=== PATIENT | male | born 1960 | race Two or more races ===

== ENCOUNTER 2019-04-18 02:20 | Inpatient (IN) | payer MEDICARE, OTHER ==
[~2019-04-18] VITALS: Ht 167.6 cm; Wt 85.7 kg
[2019-04-18] VITALS (7 sets, daily range): BP systolic 139–216; BP diastolic 74–95
[2019-04-18] MEDS ORDERED: LABETALOL HCL200 MG ORAL (02:34)
[2019-04-18] MEDS ORDERED: JANUVIA25 MG ORAL (02:34)
[2019-04-18] MEDS ORDERED: Omnipaue 350mg/ml 100ml vial INJ PRN ×3 (02:45→03:30)
[2019-04-18] MEDS ORDERED: Labetalol 5mg/ml 20ml vial IV ONE (02:45)
--- NOTE | 2019-04-18 02:47 | NUR ---
ER Nurse Note: Pt arrived in wheelchair with c/o RT side chest pain 09/23 since 04/17. Pt stated Hx of RT sided stroke with LT side deficts. Pt calm, no signs of distress, 2L NC at 96%. SLIV RT AC established; patent. Blood work sent to lab. Pending urine and CT. Will continue to montior.
--- NOTE | 2019-04-18 02:49 | Emergency Room Report ---
History of Present Illness General Chief Complaint: Chest Pain Source: Patient Present Illness HPI 58-year-old male history of stroke, hypertension, hyperlipidemia, diabetes presents with chest pain that started at 2300 no aggravating relieving factors symptoms have been intermittent, lasting minutes, he feels a dull ache that moves the back, severity is moderate, intermittent, patient denies any nausea vomiting he does endorse some shortness of breath, patient presents for evaluation. Allergies: Coded Allergies: No Known Allergies (Unverified , 04/18/19) Patient History Past Medical History: see triage record Reviewed Nursing Documentation: PMH: Agreed; PSxH: Agreed Nursing Documentation-PMH Past Medical History: No History, Except For Hx Hypertension: Yes Hx Diabetes: Yes Review of Systems All Other Systems: negative except mentioned in HPI Physical Exam Vital Signs Date Time Temp Pulse Resp B/P (MAP) Pulse Ox O2 Delivery O2 Flow Rate FiO2 04/18/19 02:30 98.2 98 25 215/96 (135) 89 Room Air Sp02 EP Interpretation: reviewed, abnormal - Reduced 89% requiring nasal cannula General Appearance: well appearing, no apparent distress, alert Head: normocephalic, atraumatic Eyes: bilateral eye PERRL, bilateral eye EOMI ENT: uvula midline, moist mucus membranes Neck: supple, thyroid normal, supple/symm/no masses Respiratory: no respiratory distress, no retraction, no accessory muscle use, decreased breath sounds Cardiovascular #1: normal peripheral pulses, regular rate, rhythm, no edema, no gallop, no murmur Gastrointestinal: non tender, soft, no guarding, no rebound Musculoskeletal: normal inspection Neurologic: alert, oriented x3 Psychiatric: mood/affect normal Skin: no rash, warm/dry Medical Decision Making Diagnostic Impression: Primary Impression: Chest pain Qualified Codes: R07.9 - Chest pain, unspecified Additional Impression: Pulmonary edema Qualified Codes: J81.0 - Acute pulmonary edema ER Course 58-year-old male presents with chest pain that radiates to his back, concern for possible dissection, versus ACS versus PE, patient found to have some pulmonary edema on chest x-ray, Labetalol given for his elevated blood pressure in the 200s, aspirin given Patient receives dialysis Monday and Patient admitted to Dr. Jensen with Dr. Mina covering at 4:22AM Laboratory Tests Test 04/18/19 02:40 White Blood Count 11.6 K/UL (4.8-10.8) H Red Blood Count 3.88 M/UL (4.70-6.10) L Hemoglobin 12.3 G/DL (14.2-18.0) L Hematocrit 37.2 % (42.0-52.0) L Mean Corpuscular Volume 96 FL (80-99) Mean Corpuscular Hemoglobin 31.6 PG (27.0-31.0) H Mean Corpuscular Hemoglobin Concent 33.0 G/DL (32.0-36.0) Red Cell Distribution Width 14.9 % (11.6-14.8) H Platelet Count 174 K/UL (150-450) Mean Platelet Volume 5.8 FL (6.5-10.1) L Neutrophils (%) (Auto) % (45.0-75.0) Lymphocytes (%) (Auto) % (20.0-45.0) Monocytes (%) (Auto) % (1.0-10.0) Eosinophils (%) (Auto) % (0.0-3.0) Basophils (%) (Auto) % (0.0-2.0) Prothrombin Time 10.4 SEC (9.30-11.50) Prothrombin Time INR 1.0 (0.9-1.1) PTT 29 SEC (23-33) Sodium Level 141 MMOL/L (136-145) Potassium Level 5.4 MMOL/L (3.5-5.1) H Chloride Level 105 MMOL/L (98-107) Carbon Dioxide Level 22 MMOL/L (21-32) Anion Gap 14 mmol/L (5-15) Blood Urea Nitrogen 85 mg/dL (7-18) H Creatinine 13.0 MG/DL (0.55-1.30) H Estimate Glomerular Filtration Rate 4.0 mL/min (>60) Glucose Level 125 MG/DL (74-106) H Calcium Level 8.5 MG/DL (8.5-10.1) Total Bilirubin 0.7 MG/DL (0.2-1.0) Aspartate Amino Transferase (AST) 10 U/L (15-37) L Alanine Aminotransferase (ALT) 15 U/L (12-78) Alkaline Phosphatase 71 U/L (46-116) Troponin I 0.020 ng/mL (0.000-0.056) Pro-B-Type Natriuretic Peptide 60131 pg/mL (0-125) H Total Protein 7.4 G/DL (6.4-8.2) Albumin 3.7 G/DL (3.4-5.0) Globulin 3.7 g/dL Albumin/Globulin Ratio 1.0 (1.0-2.7) Lipase 185 U/L (73-393) EKG Diagnostic Results EKG Time: 02:42 EP Interpretation: NSR, rate 86, QTc 461, no acute ST elevations, flipped T waves 1 V5 V6 Rhythm Strip Diag. Results Rhythm Strip Time: 02:48 EP Interpretation: yes Rate: 84 Rhythm: NSR, no PVC's, no ectopy Chest X-Ray Diagnostic Results Chest X-Ray Diagnostic Results : Chest X-Ray Ordered: Yes # of Views/Limited/Complete: 1 View Indication: Chest Pain EP Interpretation: Yes Interpretation: other - Bilateral pulmonary edema Impression: Other - Bilateral pulmonary edema Electronically Signed by: Shlomo Cervantes MD CT/MRI/US Diagnostic Results CT/MRI/US Diagnostic Results : Impression Preliminary Findings Only See Final Report For Complete Findings CTA CHEST With Contrast: Exam limited by technical artifact. Moderate sized bilateral pleural effusions with atelectasis in both lower lobes. Diffuse interstitial edema, which may be secondary to cardiac dysfunction or hypervolemia. No pneumothorax. Heart size top normal. No pericardial effusion. Major mediastinal vessels are normal in caliber. No thoracic aortic dissection. Radiologist: Alessio Schmid M.D. Study ready at 04:45 and initial results transmitted at 05:54 Last Vital Signs Date Time Temp Pulse Resp B/P (MAP) Pulse Ox O2 Delivery O2 Flow Rate FiO2 04/18/19 02:42 96 216/84 04/18/19 02:30 98.2 25 89 Room Air Disposition: ADMITTED INPATIENT Condition: Stable Referrals: [facility],REFERR[facility] (PCP) Shlomo Cervantes MD Apr 18, 2019 02:49
[2019-04-18 02:53] LABS: HEMATOCRIT 37.2 % (42.0-52.0); HEMOGLOBIN 12.3 G/DL (14.2-18.0); MEAN CORPUSCULAR VOLUME 96 FL (80-99); PLATELET COUNT 174 K/UL (150-450); RED BLOOD COUNT 3.88 M/UL (4.70-6.10); RED CELL DISTRIBUTION WIDTH 14.9 % (11.6-14.8); WHITE BLOOD COUNT 11.6 K/UL (4.8-10.8)
[2019-04-18 03:03] LABS: ANION GAP 14 mmol/L (5-15); BLOOD UREA NITROGEN 85 mg/dL (7-18); CALCIUM 8.5 MG/DL (8.5-10.1); CARBON DIOXIDE 22 MMOL/L (21-32); CHLORIDE 105 MMOL/L (98-107); POTASSIUM 5.4 MMOL/L (3.5-5.1); SODIUM 141 MMOL/L (136-145)
[2019-04-18 03:14] LABS: ALANINE AMINOTRANSFERASE 15 U/L (12-78); ALBUMIN 3.7 G/DL (3.4-5.0); ALKALINE PHOSPHATASE 71 U/L (46-116); ASPARTATE AMINO TRANSFERASE 10 U/L (15-37); BILIRUBIN,TOTAL 0.7 MG/DL (0.2-1.0)
--- NOTE | 2019-04-18 04:20 | NUR ---
ER Nurse Note: CT taken, awaiting results. Pt continues to be stable. Pt denies pain. Urine pending. All safety measures met; will continue to montior.
--- NOTE | 2019-04-18 04:35 | NUR ---
ER Nurse Note: Report given to JANELLE Hagan in tele for continutiy of care. Pt stable, no signs of distress. All belongings taken.
--- NOTE | 2019-04-18 04:45 | NUR ---
NURSE NOTES: Received pt from ED via gurney. Pt transferred to [facility] without any incident. Family member at bedside. Pt is A/O x4. [place] pt to room and unit. monitoring engineer is in placed, IV site is intact, asymptomatic and patent. Received report from JANELLE Snyder. Bed is in the lowest position and locked. Belongings list checked and accounted for. No signs/symptoms of chest pain or acute distress noted at this time. Will contact Dr. Mina for admission orders covering doctor for Dr. Jensen).
--- NOTE | 2019-04-18 05:16 | NUR ---
NURSE NOTES: Contacted Dr. Mina for admission orders. Awaiting call back.
--- NOTE | 2019-04-18 05:37 | Diagnostic Imaging Report ---
Indication: Chest and abdominal pain 1394 Technique: Continuous helical transaxial imaging of the chest, abdomen and pelvis was obtained from the thoracic inlet to the pubic symphysis during rapid intravenous contrast administration. Arterial phase of enhancement obtained. Coronal 2-D reformats were also obtained and maximum intensity projection images in multiple planes. Study obtained in a Siemens sensation [address] Total Dose length Product (DLP): [address] Dose Index Volume (CTDIvol): 18.7 mGy Comparison: None Findings: Study is nondiagnostic with regard to the thoracic and abdominal aorta which are not opacified adequately. There is extensive technical artifact limiting evaluation. Bilateral pleural effusions are noted. IMPRESSION: Nondiagnostic exam [facility] has communicated the preliminary results to the Emergency Department. Their findings are largely concordant with this report. The CT scanner at [facility] is accredited by the [employer] and the scans are performed using dose optimization techniques as appropriate to a performed exam including Automatic Exposure control.
--- NOTE | 2019-04-18 05:50 | NUR ---
NURSE NOTES: Received admission orders from Dr. Mina. Will note and carry out.
--- NOTE | 2019-04-18 05:55 | Diagnostic Imaging Report ---
Indication: Chest pain Technique: Continuous helical transaxial imaging of the chest was obtained from the thoracic inlet to the upper abdomen during rapid intravenous contrast administration. Arterial phase of enhancement obtained. Coronal 2-D reformats were also obtained and maximum intensity projection images in multiple planes. Study obtained in a Siemens sensation [address] Automatic Exposure Control was utilized. Total Dose length Product (DLP): 1154.[address] Dose Index Volume (CTDIvol): 21.8 mGy Comparison: None Findings: Study is relatively nondiagnostic due to technical artifact. There are bilateral pleural effusions. There is a suggestion of posterior atelectasis. There is contrast present within the pulmonary artery and aorta. Can confidently say there is no aneurysm of the abdominal aorta. Cannot confidently exclude other disease such as a subtle dissection. The main pulmonary artery is opacified. Cannot exclude pulmonary embolus to any with any confidence. IMPRESSION: Nondiagnostic examination with regard to evaluation for pulmonary embolus or aortic dissection. No evidence of aortic aneurysm. Moderate bilateral pleural effusions. [facility] has communicated the preliminary results to the Emergency Department. Their findings are largely concordant with this report. The CT scanner at [facility] is accredited by the [employer] and the scans are performed using dose optimization techniques as appropriate to a performed exam including Automatic Exposure control.
[2019-04-18] MEDS ORDERED: Miralax 17gm pkt ORAL PRN (06:15)
[2019-04-18] MEDS ORDERED: Nitroglycerin Subl 0.4mg tab SL PRN (06:45)
--- NOTE | 2019-04-18 07:00 | NUR ---
NURSE NOTES: Received report from JANELLE Dyson. The patient is resting on the bed without acute distress or shortness of breath. The patient's bed in the lowest position, call light in reach, and fall and aspiration precaution reinforced. IV site intact and patent. Per Karis, she will do swab since the patient is on dialysis. Per JANELLE Dyson, Dr. Mina will put the dialysis order. The patient is on 1L NC as ordered. Will continue plan of care.
--- NOTE | 2019-04-18 07:30 | NUR ---
NURSE NOTES: Isolation swabs completed and sent to lab.
--- NOTE | 2019-04-18 08:10 | NUR ---
HAND-OFF: Report given to JANELLE Garvey.
[2019-04-18] MEDS: Labetalol 200mg tab ORAL SCH ×2 (08:52→20:10)
[2019-04-18] MEDS: Aspirin Baby 81mg ORAL SCH (08:52)
[2019-04-18] MEDS: NovoLOG Insulin Flexpen SUBQ SCH ×4 (08:52→21:13)
[2019-04-18] MEDS: Heparin 5000 units/ml inj SUBQ SCH ×2 (08:53→21:14)
--- NOTE | 2019-04-18 10:30 | NUR ---
NURSE NOTES: Spoke with Dr. Mina regarding dialysis order today. Per Dr. Mina, he will put the order as soon as he gets available. Will continue plan of care.
--- NOTE | 2019-04-18 10:42 | Diagnostic Imaging Report ---
Indication: Dyspnea Comparison: None A single view chest radiograph was obtained. Findings: There is enlargement of the cardiac silhouette with pulmonary vascular redistribution and prominence, hazy vessel margins and the suggestion of interstitial edema consistent with CHF. Both costophrenic angles are slightly blunted. The bones are unremarkable. IMPRESSION: Suspected mild CHF
--- NOTE | 2019-04-18 11:04 | NUR ---
*-* NO INSURANCE INFORMATION IN THE BAR UNABLE TO SEND CLINICALS OR REVIEWS *-*
[2019-04-18] MEDS ORDERED: Lexiscan 0.4mg/5ml syringe IV PRN (12:38)
--- NOTE | 2019-04-18 15:00 | NUR ---
NURSE NOTES: Dr. Jensen at the bedside assessed the patient. Dr. Jensen was notified regarding abnormal labs including potassium, BUN, and creatinine. Will continue plan of care.
--- NOTE | 2019-04-18 15:28 | NUR ---
CASE MANAGEMENT:REVIEW 58 YR OLD MALE FROM HOME TO ER CC: CHEST PAIN SI:CHEST PAIN. PULMONARY EDEMA 98.2 98 25 215/96 89% ON RA WBC+11.6 BUN+85 CR+13.0 TROPONIN(-) IS: IV LABETALOL ASA PO CXR CTA CHEST/ABD/PELVIS : TO TELEMETRY PLAN: STRESS TEST
[2019-04-18] MEDS: Lisinopril 20mg tab ORAL SCH (15:45)
--- NOTE | 2019-04-18 15:45 | NUR ---
NURSE NOTES: Dialysis nurse, Pablo, came in for the patient's dialysis today with Dr. Mina's verbal order. Lisinopril on hold prior to the dialysis after having discussion with Pablo, the nurse. Will continue plan of care.
--- NOTE | 2019-04-18 16:45 | Consultation ---
DATE OF CONSULTATION: 04/18/2019 CARDIOLOGY CONSULTATION CONSULTING PHYSICIAN: Stefano Reece M.D. REASON FOR CONSULTATION: Chest pain and congestive heart failure with hypertensive urgency. HISTORY OF PRESENT ILLNESS: This is a 58-year-old male with left-sided hemiparesis following a stroke that has rendered him nonambulatory. He lives with his . He apparently complained of some discomfort in his chest last evening, described now as mild and now resolved. He notes no prior history of chest discomfort of this type, but is not a very reliable historian. The patient also noted some shortness of breath and was seen in the emergency room with significantly elevated blood pressure. PAST MEDICAL HISTORY: Includes 1. Hypertension. 2. Hyperlipidemia. 3. End-stage renal disease, on hemodialysis Monday, , Monday. 4. Type 2 diabetes mellitus. 5. Cerebrovascular accident with left hemiparesis. ALLERGIES: None. MEDICATIONS: Reviewed and reconciled. FAMILY HISTORY: Noncontributory. SOCIAL HISTORY: Negative for smoking, alcohol, or substance abuse. REVIEW OF SYSTEMS: A 10-point review of systems was performed. Limited data available from the patient and his at bedside, but pertinent findings were noted above. PHYSICAL EXAMINATION: VITAL SIGNS: In the emergency room, blood pressure was 215/96, heart rate 98, and respiratory rate 25. Presently blood pressure 163/82, heart rate 83, and respiratory rate 20. Afebrile. Oxygen saturation 95% on 1 liter. GENERAL: Moderately obese. Left hemiparesis. NECK: Supple. Unable to assess jugular venous pressure. LUNGS: Few rales. CARDIAC: Regular rhythm and rate. Normal S1, S2 with a fourth heart sound. EXTREMITIES: With trace edema. LABORATORY DATA: Notable for white count of 11.6, hemoglobin 12.3. BUN is 85, creatinine 13, sodium 141, potassium 5.4, bicarbonate 22. Troponin 0.02, repeated 0.012. Pro-natriuretic peptide is 21,700. EKG reveals sinus rhythm at 86 beats per minute, prolonged QTc, lateral T-wave changes. IMPRESSION: 1. Hypertensive urgency. 2. Acute on chronic diastolic congestive heart failure. 3. Acute coronary syndrome, likely precipitated by above. 4. End-stage renal disease, on hemodialysis. PLAN: 1. Cardiac monitoring. 2. Serial troponins. 3. Stepwise titration of antihypertensives. 4. Continue anti-platelet therapy. 5. Check lipid panel. 6. Hemodialysis with ultrafiltration. 7. Consideration subsequently for myocardial perfusion scan for assessment of coronary flow reserve. Stefano Reece M.D. DR: YESSENIA JOB#: [id number] CC:
--- NOTE | 2019-04-18 17:00 | NUR ---
NURSE NOTES: The patient is scheduled for HD on 04/19/2019. Pablo, hemodialysis nurse, confirmed the HD schedule and order for tomorrow. Will continue plan of care.
--- NOTE | 2019-04-18 18:00 | NUR ---
NURSE NOTES: Wu Shah, hemodialysis nurse, 3L out total from hemodialysis. The patient is stable without acute distress or shortness of breath. Will continue plan of care.
--- NOTE | 2019-04-18 18:45 | History and Physical Report ---
DATE OF ADMISSION: 04/18/2019 ALLERGIES: None. MEDICATIONS: Reviewed. CHIEF COMPLAINT: Short of breath. HISTORY OF PRESENT ILLNESS: This 58-year-old man came to the emergency department because of shortness of breath for 1 day. He apparently did go to dialysis, but the details are not known regarding how much fluid was removed. He came to the emergency department and found to have pleural effusions and congestive heart failure. He has some nonspecific chest pain, but troponins are negative. PAST MEDICAL HISTORY: Includes renal failure on dialysis, diabetes, hyperlipidemia, hypertension, stroke with left hemiparesis. REVIEW OF SYSTEMS: Otherwise unremarkable. PHYSICAL EXAMINATION: GENERAL: The patient is alert and responsive and Serbian. VITAL SIGNS: Stable. Earlier, the oxygen saturation was 89% on room air, but it is satisfactory now on 2 liters. He is overweight. HEENT: The head is normocephalic. NECK: No jugular venous distention. CHEST: Few rales on the left side. CARDIAC: Rhythm is regular. ABDOMEN: Soft and nontender. There is no accessory muscle use. EXTREMITIES: No clubbing, cyanosis, or edema. DIAGNOSTIC DATA: Chest x-ray and CT scan of the chest were reviewed and there were bilateral effusions. Echocardiogram shows satisfactory ejection fraction with left ventricular hypertrophy and pulmonary hypertension. LABORATORY STUDIES: Show azotemia and mild hyperkalemia as well as mild anemia, improved. IMPRESSION: 1. Congestive heart failure with bilateral effusions. 2. Pulmonary hypertension. 3. Left ventricular hypertrophy with hypertensive heart disease. 4. Hypertension. 5. Hyperlipidemia. 6. Diabetes. 7. End-stage renal disease, on dialysis. 8. Anemia of renal disease. 9. History of stroke with left hemiparesis. PLAN: The patient is seen by Cardiology and will be seen by Nephrology. He will be dialyzed to remove fluid. I do not believe thoracentesis is indicated at this time. Cardiac consultation recommendations are pending. Blood pressure medications will be adjusted for better control of his hypertension. Gregorio Jensen M.D. DR: SHELTON JOB#: [id number] CC: Gregorio Jensen M.D.; Fax#: [phone] Stefano Reece M.D. LOVELY BROWN M.D.; FAX#: [phone] [facility]
--- NOTE | 2019-04-18 19:20 | NUR ---
HAND-OFF: Report given to Josef RN. The patient is resting on the bed without acute distress or shortness of breath. The patient's bed in the lowest position, call light in reach, and fall and aspiration precaution reinforced. The patient is scheduled for [place] scan 04/19 and the patient education provided. IV site intact and patent. HD schedule for 04/19 confirmed today. Endorsed plan of care.
--- NOTE | 2019-04-18 19:54 | NUR ---
NURSE NOTES: Received patient from JANELLE Garvey. Patient alert, talkative, and resting in bed comfortably. No signs of distress or pain noted. Patient on 1L NC, no signs of shortness of breath. IV site checked, intact and patent, no signs of erythema, bleeding, or infiltration. Patient able to make needs known. Patient is scheduled for inpatient hemodialysis on 04/19, appointment confirmed on day shift with Pablo. Patient scheduled for stress test on 04/19, consent signed, and patient aware of NPO and no caffeine/coffee/tea/chocolate at midnight. Will continue with plan of care. Addendum: 04/18/19 at 2002 by Fanny Ching RN Bed in lowest position, brakes on, and call light within reach.
--- NOTE | 2019-04-18 21:00 | Consultation ---
DATE OF CONSULTATION: 04/18/2019 NEPHROLOGY CONSULTATION CONSULTING PHYSICIAN: Sai Mina M.D. REASON FOR CONSULTATION: End-stage renal disease, CHF. HISTORY OF PRESENT ILLNESS: The patient is a 58-year-old male, who has been on dialysis for about 3 years, has a left arm fistula, apparently dialyzes 2 days a week. He has history of CVA with left-sided weakness, hypertension, diabetes. He presented with shortness of breath and CHF. He also had some vague chest discomfort in the precordial area, not clear if this is from shortness of breath or angina. There is no prior history of GA. ALLERGIES: None known. MEDICATIONS: Normodyne and Januvia. SURGERIES: Left arm AV fistula. SYSTEM REVIEW: HEAD, EYES, EARS, NOSE, AND THROAT: He states his vision and hearing is good. ENDOCRINE: History of diabetes, mild obesity. PULMONARY: Shortness of breath currently. No chronic shortness of breath. CARDIAC: No prior history of GA. Denies palpitations. GASTROINTESTINAL: Denies nausea, vomiting, abdominal pain. GENITOURINARY: Denies dysuria, hematuria. NEUROLOGIC: CVA with left-sided weakness, old. PHYSICAL EXAMINATION: GENERAL: The patient is an alert man, in no acute distress. VITAL SIGNS: BMI 30.5. Temperature is 97.9, pulse 78, respirations 20, and blood pressure 139/74. HEAD, EYES, EARS, NOSE, AND THROAT: Sclerae are nonicteric. Ocular motions intact in all directions. Oral mucosa is moist. There is some ptosis of his right eyelid. NECK: No adenopathy. LUNGS: Clear. Some diminished breath sounds at the bases. HEART: Rhythm is regular. There is apical S4. No murmur. ABDOMEN: Soft without organomegaly or masses. EXTREMITIES: No edema, cyanosis, or clubbing. NEUROLOGIC: He is alert and oriented. Cranial nerves are intact. There is a residual left-sided weakness about 3+ to 4-/5. LABORATORY DATA: Pertinent labs show sodium 141, potassium 5.4, BUN 85, creatinine 13, glucose 125. Troponin 0.020. BNP 80378. IMPRESSION: 1. End-stage renal disease. 2. Congestive heart failure, acute on chronic, likely with diastolic dysfunction. 3. Adult onset diabetes. 4. History of CVA. 5. Obesity. 6. Hypertension. 7. Chest pressure, possible acute coronary syndrome versus due to CHF. PLAN: The patient will be put on anti-ischemic regimen. He is seen on dialysis on 04/18/2019 and I will order another dialysis 04/19/2019 for fluid removal. We will get dietary consultation. Thank you so much. Sai Mina M.D. DR: DINAH JOB#: [id number] CC:
--- NOTE | 2019-04-18 23:24 | NUR ---
NURSE NOTES: Called Dr. Reece regarding patient's bp is 173/88, but patient only has a scheduled Labetalol beta que medication due at 2100 and patient will be having a stress test procedure in AM. Awaiting callback.
[2019-04-18 23:26] LABS: APPEARANCE,URINE CLEAR; BILIRUBIN, URINE NEGATIVE (NEGATIVE); COLOR,URINE PALE YELLOW; GLUCOSE, URINE (UA) 2+ (NEGATIVE); KETONES,URINE NEGATIVE (NEGATIVE); LEUKOCYTE ESTERASE ,URINE NEGATIVE (NEGATIVE); NITRITE,URINE NEGATIVE (NEGATIVE); PH,URINE 6 (4.5-8.0); PROTEIN,URINE 4+ (NEGATIVE); UROBILINOGEN,URINE NORMAL MG/DL (0.0-1.0)
[2019-04-18] MEDS: HydrALAZINE 25mg tab ORAL PRN (23:52)
[2019-04-19] VITALS (8 sets, daily range): BP systolic 114–187; BP diastolic 66–98
[2019-04-19] MEDS ORDERED: Heparin Sod 1000 units/ml 10ml IV PRN (06:00)
[2019-04-19] MEDS: sitaGLIPtin 25mg tab ORAL SCH (06:30)
[2019-04-19] MEDS: NovoLOG Insulin Flexpen SUBQ SCH ×4 (06:30→20:22)
--- NOTE | 2019-04-19 07:31 | NUR ---
HAND-OFF: Report given to JANELLE Garcia. Patient asleep in bed, no signs of pain or distress noted. Patient in stable condition. Plan of care endorsed, Stress test and hemodialysis scheduled for 04/19/19.
--- NOTE | 2019-04-19 07:35 | NUR ---
NURSE NOTES: Nurse report given by Vic LUIS. Patient's awake in bed, AO x 3, no s/s of distress or SOB, denies pain. NPO diet prior to the procedure. Bed low and locked, call light within reach, side rails x 2, safety precautions on. IV is saline locked, patent and asymptomatic. Will continue to monitor.
--- NOTE | 2019-04-19 08:05 | Nephrology Progress Note ---
Assessment/Plan Problem List: (1) CVA, old, hemiparesis (2) Nephropathy due to secondary diabetes (3) Hypertensive nephrosclerosis (4) End-stage renal disease (5) Pulmonary edema (6) Chest pain Plan dialysis 04/19 , titration bp meds as outpatient, avoid hypotension on HD Subjective Constitutional: Reports: weakness HEENT: Reports: no symptoms Genitourinary: Reports: no symptoms Neurologic/Psychiatric: Reports: pre-existing deficit Objective Objective Last 24 Hour Vital Signs Date Time Temp Pulse Resp B/P (MAP) Pulse Ox O2 Delivery O2 Flow Rate FiO2 04/19/19 04:00 99.8 89 18 150/88 (108) 95 04/19/19 04:00 87 04/19/19 00:00 98.5 93 18 173/88 (116) 94 04/19/19 00:00 85 04/18/19 23:52 173/88 04/18/19 21:00 Nasal Cannula 1.0 04/18/19 20:00 98.7 90 18 157/75 (102) 94 04/18/19 20:00 87 04/18/19 16:00 98.2 80 20 141/76 (97) 99 04/18/19 16:00 81 04/18/19 15:45 141/76 04/18/19 12:00 97.9 78 20 139/74 (95) 98 04/18/19 12:00 78 04/18/19 09:00 Nasal Cannula 1.0 04/18/19 08:52 83 163/82 Intake and Output 04/18/19 04/19/19 19:00 07:00 Intake Total 320 ml 30 ml Output Total 3000 ml 30 ml Balance -2680 ml 0 ml Intake Oral 320 ml 30 ml Output Urine Total 30 ml Hemodialysis UF 3000 ml # Voids 1 Laboratory Tests 04/18/19 09:00: Troponin I 0.014 04/18/19 17:01: Troponin I 0.002 04/18/19 23:15: Urine Color Pale yellow, Urine Appearance Clear, Urine pH 6, Urine Specific [place] 1.015, Urine Protein 4+H, Urine Glucose (UA) 2+H, Urine Ketones Negative , Urine Blood 1+H, Urine Nitrite Negative, Urine Bilirubin Negative, Urine Urobilinogen Normal, Urine Leukocyte Esterase Negative, Urine RBC 0-2H, Urine WBC 0, Urine Squamous Epithelial Cells None, Urine Bacteria Few, Urine Opiates Screen Negative, Urine Barbiturates Screen Negative, Phencyclidine (PCP) Screen Negative, Urine Amphetamines Screen Negative, Urine Benzodiazepines Screen Negative, Urine Cocaine Screen Negative, Urine Marijuana (THC) Screen Negative 04/19/19 06:33: Troponin I 0.009 Height (Feet): 5 Height (Inches): 6.00 Weight (Pounds): 189 General Appearance: no apparent distress EENT: normal ENT inspection Neck: normal alignment Cardiovascular: normal rate, regular rhythm Respiratory/Chest: lungs clear Abdomen: non tender, soft Extremities: other - no edema Neurologic: motor weakness Sai Mina MD Apr 19, 2019 08:04
--- NOTE | 2019-04-19 08:50 | NUR ---
NURSE NOTES: Patient's getting dialysis right now and dialysis nurse informed that patient's BP 191/103. Dialysis nurse said ok to give blood pressure medications: lisinopril, labetalol and hydralazine. Will reassess closely.
--- NOTE | 2019-04-19 08:50 | NUR ---
NURSE NOTES: Patient denied chest pain nor generalized pain.AO x 3. Will continue to monitor closely.
[2019-04-19] MEDS: Labetalol 200mg tab ORAL SCH ×2 (08:52→20:41)
[2019-04-19] MEDS: Aspirin Baby 81mg ORAL SCH (08:52)
[2019-04-19] MEDS: Heparin 5000 units/ml inj SUBQ SCH ×3 (08:53→20:42)
[2019-04-19] MEDS: Lisinopril 20mg tab ORAL SCH ×2 (08:53→17:50)
[2019-04-19] MEDS: HydrALAZINE 25mg tab ORAL PRN (09:17)
--- NOTE | 2019-04-19 09:47 | NUR ---
*-* INSURANCE *--* ALL CLINICALS AND REVIEWS HAVE BEEN FAXED TO: [facility]: TIMA LOERA P- [phone] - OPT-1 F- [phone]............REVIEW/CLINICAL
--- NOTE | 2019-04-19 10:45 | NUR ---
NURSE NOTES: Patient's done with dialysis with 3 liters removed. Patient tolerated well, blood pressure is stable. BP 145/72, HR 78, O2 98%.
--- NOTE | 2019-04-19 10:50 | NUR ---
NURSE NOTES: Informed Nuclear med department and spoke to Neftali that patient's done with dialysis and he's ok to proceed with stress test soon. combination technician, Jonathan, is aware that patient's blood pressure is stable.
--- NOTE | 2019-04-19 12:02 | NUR ---
NURSE NOTES: Patient's off the floor for stress test with assistance from karyn Lindsay Off tele order is in. Addendum: 04/19/19 at 1212 by Mai Mkcnight RN Patient's in stable condition, no s/s of distress or SOB, transported with nasal cannula oxygen.
--- NOTE | 2019-04-19 13:19 | General Progress Note ---
Assessment/Plan Assessment/Plan: 1. Congestive heart failure with bilateral effusions. 2. Pulmonary hypertension. 3. Left ventricular hypertrophy with hypertensive heart disease. 4. Hypertension. 5. Hyperlipidemia. 6. Diabetes. 7. End-stage renal disease, on dialysis. 8. Anemia of renal disease. 9. History of stroke with left hemiparesis. improved with dialysis x 2 stress test today repeat CXR re effusions increase BP rx Subjective Cardiovascular: Denies: chest pain Respiratory: Denies: shortness of breath Allergies: Coded Allergies: No Known Allergies (Unverified , 04/18/19) Objective Last 24 Hour Vital Signs Date Time Temp Pulse Resp B/P (MAP) Pulse Ox O2 Delivery O2 Flow Rate FiO2 04/19/19 12:00 98.4 80 20 170/82 (111) 97 04/19/19 11:17 98.4 78 20 145/72 (96) 98 04/19/19 09:17 183/103 04/19/19 09:00 Nasal Cannula 1.0 04/19/19 08:53 151/98 04/19/19 08:52 88 151/98 04/19/19 08:00 98.4 88 20 151/98 (115) 95 04/19/19 08:00 84 04/19/19 04:00 99.8 89 18 150/88 (108) 95 04/19/19 04:00 87 04/19/19 00:00 98.5 93 18 173/88 (116) 94 04/19/19 00:00 85 04/18/19 23:52 173/88 04/18/19 21:00 Nasal Cannula 1.0 04/18/19 20:00 98.7 90 18 157/75 (102) 94 04/18/19 20:00 87 04/18/19 16:00 98.2 80 20 141/76 (97) 99 04/18/19 16:00 81 04/18/19 15:45 141/76 Intake and Output 04/18/19 04/19/19 18:59 06:59 Intake Total 320 ml 30 ml Output Total 3000 ml 30 ml Balance -2680 ml 0 ml Intake Oral 320 ml 30 ml Output Urine Total 30 ml Hemodialysis UF 3000 ml # Voids 1 Laboratory Tests 04/18/19 17:01: Troponin I 0.002 04/18/19 23:15: Urine Color Pale yellow, Urine Appearance Clear, Urine pH 6, Urine Specific [place] 1.015, Urine Protein 4+H, Urine Glucose (UA) 2+H, Urine Ketones Negative , Urine Blood 1+H, Urine Nitrite Negative, Urine Bilirubin Negative, Urine Urobilinogen Normal, Urine Leukocyte Esterase Negative, Urine RBC 0-2H, Urine WBC 0, Urine Squamous Epithelial Cells None, Urine Bacteria Few, Urine Opiates Screen Negative, Urine Barbiturates Screen Negative, Phencyclidine (PCP) Screen Negative, Urine Amphetamines Screen Negative, Urine Benzodiazepines Screen Negative, Urine Cocaine Screen Negative, Urine Marijuana (THC) Screen Negative 04/19/19 06:33: Troponin I 0.009 Height (Feet): 5 Height (Inches): 6.00 Weight (Pounds): 189 General Appearance: no apparent distress Neck: supple Cardiovascular: normal rate Respiratory/Chest: decreased breath sounds Gregorio Jensen MD Apr 19, 2019 13:19
--- NOTE | 2019-04-19 13:52 | NUR ---
CASE MANAGEMENT:REVIEW 04/19/19 SI: CHF W/BILATERAL EFFUSION CHEST PAIN 98.4 80 20 170/82 97% ON 1L/NC TROPONIN(-) X4 IS: HYDRALAZINE PO QD LISINOPRIL PO BID LABETALOL PO Q12 ASA PO QD : TELEMETRY DCP: FROM HOME PLAN: STRESS TEST TODAY
--- NOTE | 2019-04-19 15:37 | NUR ---
NM Myocardial Perfusion scan complete.
--- NOTE | 2019-04-19 15:53 | Diagnostic Imaging Report ---
Indication: chest pain Technique: The study was conducted under the supervision of a occasional babysitter. lexiscan (regadenoson) infusion over 10 seconds followed by intravenous administration of 30 1. mCi of technetium 99m Myoview was performed. Three plane SPECT imaging of the heart was then performed. A resting study was performed as part of the one-day protocol with 10.1 mCi of technetium 99m myoview injected intravenously at that time. Three plane SPECT imaging of the heart was obtained. Comparison: None Clinical data: 1. Clinical response: Non ischemic 2. Electrocardiographic response: Non ischemic Findings: The myocardial perfusion scan demonstrates no fixed or reversible perfusion defects. There is some apparent hypoperfusion to the inferior wall which may be due to diaphragmatic attenuation. Inferior infarct is not excluded. LVEF is 56% IMPRESSION: No evidence of myocardial ischemia Inferior wall infarct versus diaphragmatic attenuation. Please correlate clinically. LVEF 56%
[2019-04-19] MEDS: HydrALAZINE 25mg tab ORAL SCH ×2 (17:49→23:12)
--- NOTE | 2019-04-19 19:20 | NUR ---
HAND-OFF: Report given to JANELLE Alvarado. Patient's stable, plan of care endorsed.
--- NOTE | 2019-04-19 19:40 | NUR ---
NURSE NOTES: Received report from Radha RN, pt. in bed awake, A/O x's3-able to make needs known, no signs or symptoms of acute or cardiac distress noted, bed in lowest position and and call light within easy reach, bed alarm on, side rails up x's3 and safety braked engaged, pt. appears to be sating well on 2L NC- no distress noted, pt. appears to be resting comfortably in bed-and appears to be clean and dry, pt. has TYE AV shunt for hemodialysis, RT. AC 20G IV intact and patent, safety measures continued, will continue with plan of care. Addendum: 04/19/19 at 1943 by LUDMILA HAIR RN RN per endorsement DR. Andino aware of Troponin trending up.
[2019-04-20] VITALS (7 sets, daily range): BP systolic 137–185; BP diastolic 75–89
[2019-04-20] MEDS: NovoLOG Insulin Flexpen SUBQ SCH ×4 (05:42→21:00)
[2019-04-20] MEDS: sitaGLIPtin 25mg tab ORAL SCH (05:42)
[2019-04-20] MEDS: HydrALAZINE 25mg tab ORAL SCH (05:44)
--- NOTE | 2019-04-20 07:14 | NUR ---
HAND-OFF: Report given to Niyah RN, pt. remains stable and no signs of distress noted.
--- NOTE | 2019-04-20 07:48 | NUR ---
NURSE NOTES: Received patient from Kavita Bustillo Rn. Patient is awake and alert. No complain of pain or discomfort. safety precautions in place. call samayoa within patients reach. will monitor.
--- NOTE | 2019-04-20 08:00 | NUR ---
NURSE NOTES: Dr. Cage on the floor. seen and examine patient . Per MD patient may be discharge today if wheezing improve. also MD aware that patients Blood pressure still elevated. MD stated it could be from affect from taking steroids. will follow. Addendum: 04/20/19 at 1019 by Brianna Linder RN Please disregard documentation above. WRONG PATIENT.
[2019-04-20] MEDS: Lisinopril 20mg tab ORAL SCH ×2 (09:05→17:45)
[2019-04-20] MEDS: Heparin 5000 units/ml inj SUBQ SCH ×2 (09:07→22:11)
[2019-04-20] MEDS: Aspirin Baby 81mg ORAL SCH (09:10)
[2019-04-20] MEDS: Labetalol 200mg tab ORAL SCH ×2 (09:10→22:09)
--- NOTE | 2019-04-20 09:30 | NUR ---
NURSE NOTES: Received discharge order from Dr. Cage. Patient lung sounds improved after Breathing treatment. still has some expiratory wheeze on Bilateral lower lobes. denies SOB and Oxygen sat is 96% on room air. Blood pressure is 155/90 HR 109. Call placed to MD if he wanted to proceed with discharge awaiting call back. Addendum: 04/20/19 at 1022 by Brianna Linder RN Please disregard documentation above. WRONG PATIENT.
--- NOTE | 2019-04-20 11:35 | Nephrology Progress Note ---
Assessment/Plan Problem List: (1) CVA, old, hemiparesis (2) Nephropathy due to secondary diabetes (3) Hypertensive nephrosclerosis (4) End-stage renal disease (5) Pulmonary edema (6) Chest pain Plan dialysis 04/19 , titration bp meds as outpatient, avoid hypotension on HD Subjective Constitutional: Reports: weakness HEENT: Reports: no symptoms Genitourinary: Reports: no symptoms Neurologic/Psychiatric: Reports: pre-existing deficit Objective Objective Last 24 Hour Vital Signs Date Time Temp Pulse Resp B/P (MAP) Pulse Ox O2 Delivery O2 Flow Rate FiO2 04/20/19 09:10 80 167/75 04/20/19 09:05 167/75 04/20/19 09:00 Nasal Cannula 1.0 04/20/19 08:00 85 04/20/19 08:00 98.4 80 20 167/75 (105) 95 04/20/19 05:44 139/89 04/20/19 04:00 78 04/20/19 04:00 97.2 79 18 139/89 (106) 97 04/20/19 00:00 77 04/20/19 00:00 97.7 78 19 137/82 (100) 98 04/19/19 23:12 158/66 04/19/19 22:13 84 158/66 (96) 04/19/19 21:00 Nasal Cannula 1.0 04/19/19 20:41 84 187/92 04/19/19 20:00 82 04/19/19 20:00 97.7 87 20 187/92 (123) 97 04/19/19 17:50 114/84 04/19/19 17:49 114/84 04/19/19 16:00 97.5 82 20 114/84 (94) 95 04/19/19 16:00 80 04/19/19 12:00 74 04/19/19 12:00 98.4 80 20 170/82 (111) 97 Intake and Output 04/19/19 04/20/19 19:00 07:00 Intake Total 200 ml Balance 200 ml Intake Oral 200 ml # Voids 1 2 # Bowel Movements 1 Height (Feet): 5 Height (Inches): 6.00 Weight (Pounds): 189 General Appearance: no apparent distress, alert EENT: normal ENT inspection Neck: supple Cardiovascular: normal rate Respiratory/Chest: lungs clear Abdomen: non tender, soft Extremities: other - no edema Neurologic: motor weakness Sai Mina MD Apr 20, 2019 11:35
[2019-04-20] MEDS: HydrALAZINE 50mg tab ORAL SCH ×2 (12:21→17:44)
--- NOTE | 2019-04-20 12:50 | NUR ---
NURSE NOTES: Patient's Blood pressure 185/78 asymptomatic. Denies discomfort. Hydralazine 50mg PO give. Will monitor
--- NOTE | 2019-04-20 14:00 | NUR ---
NURSE NOTES: Patients blood pressure down to 152/75 after hydralazine PO given. will follow
--- NOTE | 2019-04-20 15:17 | NUR ---
CASE MANAGEMENT:REVIEW 04/20/19 SI: CHF W/BILATERAL EFFUSION CHEST PAIN T 97.4 HR 74 RR 18 B/P 185/78 SATS 94% ON 1L/NC LABS NONE TODAY IS: HYDRALAZINE PO QD LISINOPRIL PO BID LABETALOL PO Q12 ASA PO QD : TELEMETRY DCP: FROM HOME PLAN: STRESS TEST TODAY>> NON ISCHEMIC LVEF 56%
--- NOTE | 2019-04-20 19:40 | NUR ---
HAND-OFF: Report given to Chito Devine. Plan of care endorsed.
--- NOTE | 2019-04-20 19:41 | NUR ---
NURSE NOTES: Got repot from Kong LUIS. Pt in stable condition. Denies any pain. No s/s of distress or discomfort noted. Pt resting in bed comfortably. Bed in low and locked position, call light within reach, bedside table within reach. Continue to monitor.
--- NOTE | 2019-04-20 20:12 | Pulmonology Progress Note ---
Assessment/Plan Assessment/Plan 1. Congestive heart failure with bilateral effusions. 2. Pulmonary hypertension. 3. Left ventricular hypertrophy with hypertensive heart disease. 4. Hypertension. 5. Hyperlipidemia. 6. Diabetes. 7. End-stage renal disease, on dialysis. 8. Anemia of renal disease. 9. History of stroke with left hemiparesis. improved with dialysis no further cards eval repeat CXR re effusions increase BP rx but still elevated will dc in am if bp controlled Subjective Constitutional: Reports: no symptoms HEENT: Repors: no symptoms Respiratory: Reports: no symptoms Cardiovascular: Reports: no symptoms Gastrointestinal/Abdominal: Reports: no symptoms Allergies: Coded Allergies: No Known Allergies (Unverified , 04/18/19) Subjective doign well HD MWF Bp still elevated 155-185 systolic no cp nv or bleeding tolerating po Objective Last 24 Hour Vital Signs Date Time Temp Pulse Resp B/P (MAP) Pulse Ox O2 Delivery O2 Flow Rate FiO2 04/20/19 17:45 162/77 04/20/19 17:44 162/77 04/20/19 16:00 71 04/20/19 16:00 97.5 73 18 162/77 (105) 97 04/20/19 14:00 152/75 (100) 04/20/19 12:21 185/78 04/20/19 12:00 75 04/20/19 12:00 97.9 74 18 185/78 (113) 94 04/20/19 09:10 80 167/75 04/20/19 09:05 167/75 04/20/19 09:00 Nasal Cannula 1.0 04/20/19 08:00 85 04/20/19 08:00 98.4 80 20 167/75 (105) 95 04/20/19 05:44 139/89 04/20/19 04:00 78 04/20/19 04:00 97.2 79 18 139/89 (106) 97 04/20/19 00:00 77 04/20/19 00:00 97.7 78 19 137/82 (100) 98 04/19/19 23:12 158/66 04/19/19 22:13 84 158/66 (96) 04/19/19 21:00 Nasal Cannula 1.0 04/19/19 20:41 84 187/92 Intake and Output 04/19/19 04/20/19 18:59 06:59 Intake Total 200 ml Balance 200 ml Intake Oral 200 ml # Voids 1 2 # Bowel Movements 1 General Appearance: WD/WN Respiratory/Chest: lungs clear, normal breath sounds Cardiovascular: regular rhythm, regularly irregular Abdomen: soft, non tender, no organomegaly Extremities: no clubbing Skin: no lesions, no ulcers Neurologic/Psychiatric: abnormal gait, oriented x 3, responsive Microbiology Date/Time Source Procedure Growth Status 04/18/19 07:50 Nasal Nares MRSA Culture - Final NO METHICILLIN RESISTANT STAPH AUREUS... Complete 04/18/19 07:50 Rectum VRE Culture - Final NO VANCOMYCIN RESISTANT ENTEROCOCCUS ... Complete 04/18/19 07:50 Rectum - Final NO CARBAPENEM-RESISTANT ENTEROBACTERI... Complete Current Medications Medications (Trade) Dose Ordered Sig/Sarah Route PRN Reason Start Time Stop Time Status Last Admin Dose Admin Acetaminophen (Tylenol) 650 mg Q4H PRN ORAL Mild Pain/Temp > 100.5 04/18/19 06:15 05/18/19 06:14 Aspirin (ASA) 81 mg DAILY ORAL 04/18/19 09:00 05/18/19 08:59 04/20/19 09:10 Dextrose (Dextrose 50%) 25 ml Q30M PRN IV Hypoglycemia 04/18/19 06:30 05/18/19 06:29 Dextrose (Dextrose 50%) 50 ml Q30M PRN IV Hypoglycemia 04/18/19 06:30 05/18/19 06:29 Heparin Sodium (Porcine) (Heparin 5000 units/ml) 5,000 units EVERY 12 HOURS SUBQ 04/18/19 09:00 05/18/19 08:59 04/20/19 09:07 Hydralazine HCl (Apresoline) 50 mg Q6HR ORAL 04/20/19 12:00 05/20/19 11:59 04/20/19 17:44 Insulin Aspart (NovoLOG) BEFORE MEALS AND HS SUBQ 04/18/19 08:00 05/18/19 07:59 04/18/19 21:13 Labetalol HCl (Normodyne) 200 mg EVERY 12 HOURS ORAL 04/18/19 09:00 05/18/19 08:59 04/20/19 09:10 Lisinopril (Prinivil) 20 mg BID ORAL 04/19/19 18:00 05/18/19 15:44 10/5/19 17:45 Nitroglycerin (Ntg) 0.4 mg Q5MIN X 3 DOSES PRN SL Prn Chest Pain 04/18/19 06:45 05/18/19 06:44 Ondansetron HCl (Zofran) 4 mg Q4H PRN IVP Nausea & Vomiting 04/18/19 06:15 05/18/19 06:14 Polyethylene Glycol (Miralax) 17 gm DAILYPRN PRN ORAL Constipation 04/18/19 06:15 05/18/19 06:14 04/19/19 15:39 Sitagliptin Phosphate (Januvia) 25 mg ACBREAKFAST ORAL 04/19/19 06:30 05/19/19 06:29 Martita Celaya DO Apr 20, 2019 20:12
--- NOTE | 2019-04-20 20:15 | Progress Note ---
DATE: 04/19/2019 CARDIOLOGY PROGRESS NOTE Late entry. SUBJECTIVE: The patient has less shortness of breath. He is status post dialysis x2 with fluid removal. Blood pressure remains elevated at times. He has completed his myocardial perfusion scan today. The results revealed no ischemia, mild diaphragmatic attenuation of no clinical significance. OBJECTIVE: VITAL SIGNS: Blood pressure 145/72 to 170/82, heart rate 78 to 80, respiratory rate 20, and afebrile. NECK: Mild jugular venous distention. LUNGS: Diminished breath sounds. Few rales. HEART: Regular rhythm and rate. Normal S1, S2 with a fourth heart sound. EXTREMITIES: Trace edema. IMPRESSION: 1. Hypertensive cardiomyopathy. 2. Hypertensive urgency. 3. Acute on chronic diastolic congestive heart failure. 4. End-stage renal disease. 5. Acute myocardial ischemia precipitated by elevated blood pressure. 6. Pulmonary hypertension. 7. Adequate coronary flow reserve. PLAN: 1. Continue optimization of volume status with ultrafiltration. 2. Continue up titration of antihypertensives to optimize blood pressure control. 3. No plans for further cardiovascular diagnostic studies at this time. 4. Long-term management of diabetes and lipids to maintain LDL goal less than 70 and A1c less than 8. Stefano Reece M.D. DR: JORDIN JOB#: [id number] CC:
[2019-04-21] VITALS: BP 152/76
[2019-04-21] MEDS: HydrALAZINE 50mg tab ORAL SCH ×5 (00:48→23:07)
[2019-04-21 04:00] VITALS: BP 160/66
[2019-04-21] MEDS: sitaGLIPtin 25mg tab ORAL SCH (06:03)
[2019-04-21] MEDS: NovoLOG Insulin Flexpen SUBQ SCH ×4 (06:26→21:14)
--- NOTE | 2019-04-21 07:00 | NUR ---
HAND-OFF: Report given to Kong LUIS. Endorsed plan of care.
--- NOTE | 2019-04-21 07:10 | NUR ---
CASE MANAGEMENT:REVIEW 04/21/19 SI: CHF W/BILATERAL EFFUSION. CHEST PAIN T 98 HR 84 RR 20 B/P 160/66 SATS 95% ON 1L/NC NO LABS TODAY IS: HYDRALAZINE PO QD LISINOPRIL PO BID LABETALOL PO Q12 ASA PO QD : TELEMETRY DCP: FROM HOME
--- NOTE | 2019-04-21 07:28 | NUR ---
NURSE NOTES: Received patient from Chito Devine. Patient is lying comfortably in bed no s/s of discomfort/distress. safety precautions in place. will continue to monitor.
[2019-04-21 08:00] VITALS: BP 150/64
[2019-04-21] MEDS: Lisinopril 20mg tab ORAL SCH ×2 (08:52→17:41)
[2019-04-21] MEDS: Labetalol 200mg tab ORAL SCH ×2 (08:52→21:12)
[2019-04-21] MEDS: Aspirin Baby 81mg ORAL SCH (08:52)
[2019-04-21] MEDS: Heparin 5000 units/ml inj SUBQ SCH ×2 (08:53→21:13)
[2019-04-21 12:00] VITALS: BP 152/70
--- NOTE | 2019-04-21 12:45 | Nephrology Progress Note ---
Assessment/Plan Problem List: (1) CVA, old, hemiparesis (2) Nephropathy due to secondary diabetes (3) Hypertensive nephrosclerosis (4) End-stage renal disease (5) Pulmonary edema (6) Chest pain Plan dialysis 04/19 ,hydralazine added, titration bp meds as outpatient, avoid hypotension on HD Subjective Constitutional: Reports: weakness HEENT: Reports: no symptoms Genitourinary: Reports: no symptoms Neurologic/Psychiatric: Reports: pre-existing deficit Objective Objective Last 24 Hour Vital Signs Date Time Temp Pulse Resp B/P (MAP) Pulse Ox O2 Delivery O2 Flow Rate FiO2 04/21/19 12:20 152/70 04/21/19 12:00 98.6 73 20 152/70 (97) 97 04/21/19 09:00 Nasal Cannula 1.0 04/21/19 08:52 150/64 04/21/19 08:52 82 150/64 04/21/19 08:00 80 04/21/19 08:00 98.2 82 18 150/64 (92) 95 04/21/19 06:03 160/66 04/21/19 04:00 80 04/21/19 04:00 98.0 84 20 160/66 (97) 95 04/21/19 00:48 152/76 04/21/19 00:00 98.4 79 20 152/76 (101) 95 04/21/19 00:00 76 04/20/19 22:09 87 168/85 04/20/19 21:00 Nasal Cannula 1.0 04/20/19 20:00 97.4 87 20 160/85 (110) 96 04/20/19 20:00 84 04/20/19 17:45 162/77 04/20/19 17:44 162/77 04/20/19 16:00 71 04/20/19 16:00 97.5 73 18 162/77 (105) 97 04/20/19 14:00 152/75 (100) Intake and Output 04/20/19 04/21/19 19:00 07:00 Intake Total 300 ml Output Total 200 ml Balance 100 ml Intake Oral 300 ml Output Urine Total 200 ml # Voids 2 Height (Feet): 5 Height (Inches): 6.00 Weight (Pounds): 189 General Appearance: no apparent distress, alert EENT: normal ENT inspection Neck: normal alignment Cardiovascular: normal rate Respiratory/Chest: lungs clear Abdomen: non tender, soft Extremities: other - no edema Neurologic: motor weakness Sai Mina MD Apr 21, 2019 12:45
[2019-04-21] MEDS ORDERED: guaiFENesin 100mg/5ml Liq ud ORAL PRN (13:00)
[2019-04-21 16:00] VITALS: BP 144/59
--- NOTE | 2019-04-21 19:30 | NUR ---
NURSE NOTES: Pt report received from UMAIR LUIS TELE. pt remains stable. pt is alert and oriented times 4 and able to follow follow commands. pt is on a civil preparedness officer showing NSR, no distress noted. pt is on Room air and able to sat at 98%, no distress noted. pt bed is low, locked, armed call light within reach, bed rails up times 3. will follow plan of care. family at bed side.
--- NOTE | 2019-04-21 19:33 | NUR ---
HAND-OFF: Report given to Chito Allred. Plan of care endorsed.
[2019-04-21 20:00] VITALS: BP 165/76
--- NOTE | 2019-04-21 21:01 | Pulmonology Progress Note ---
Assessment/Plan Assessment/Plan 1. Congestive heart failure with bilateral effusions. 2. Pulmonary hypertension. 3. Left ventricular hypertrophy with hypertensive heart disease. 4. Hypertension. 5. Hyperlipidemia. 6. Diabetes. 7. End-stage renal disease, on dialysis. 8. Anemia of renal disease. 9. History of stroke with left hemiparesis. improved with dialysis no further cards eval repeat CXR re effusions BP better will dc in am if bp controlled Subjective Constitutional: Reports: no symptoms HEENT: Repors: no symptoms Respiratory: Reports: no symptoms Cardiovascular: Reports: no symptoms Allergies: Coded Allergies: No Known Allergies (Unverified , 04/18/19) Subjective doign well HD MWF BP improved no cp nv or bleeding tolerating po Objective Last 24 Hour Vital Signs Date Time Temp Pulse Resp B/P (MAP) Pulse Ox O2 Delivery O2 Flow Rate FiO2 04/21/19 18:00 79 04/21/19 17:41 144/59 04/21/19 17:40 144/59 04/21/19 16:00 97.9 79 18 144/59 (87) 96 04/21/19 12:20 152/70 04/21/19 12:00 98.6 73 20 152/70 (97) 97 04/21/19 12:00 72 04/21/19 09:00 Nasal Cannula 1.0 04/21/19 08:52 150/64 04/21/19 08:52 82 150/64 04/21/19 08:00 80 04/21/19 08:00 98.2 82 18 150/64 (92) 95 04/21/19 06:03 160/66 04/21/19 04:00 80 04/21/19 04:00 98.0 84 20 160/66 (97) 95 04/21/19 00:48 152/76 04/21/19 00:00 98.4 79 20 152/76 (101) 95 04/21/19 00:00 76 04/20/19 22:09 87 168/85 04/20/19 21:00 Nasal Cannula 1.0 Intake and Output 04/20/19 04/21/19 18:59 06:59 Intake Total 300 ml Output Total 200 ml Balance 100 ml Intake Oral 300 ml Output Urine Total 200 ml # Voids 2 General Appearance: WD/WN Respiratory/Chest: lungs clear, normal breath sounds Cardiovascular: normal rate, regular rhythm Abdomen: soft, non tender, no organomegaly Extremities: no cyanosis Skin: no lesions Neurologic/Psychiatric: alert, oriented x 3 Current Medications Medications (Trade) Dose Ordered Sig/Sarah Route PRN Reason Start Time Stop Time Status Last Admin Dose Admin Acetaminophen (Tylenol) 650 mg Q4H PRN ORAL Mild Pain/Temp > 100.5 04/18/19 06:15 05/18/19 06:14 Aspirin (ASA) 81 mg DAILY ORAL 04/18/19 09:00 05/18/19 08:59 04/21/19 08:52 Dextrose (Dextrose 50%) 25 ml Q30M PRN IV Hypoglycemia 04/18/19 06:30 05/18/19 06:29 Dextrose (Dextrose 50%) 50 ml Q30M PRN IV Hypoglycemia 04/18/19 06:30 05/18/19 06:29 Guaifenesin (Robitussin) 100 mg QIDPRN PRN ORAL For Cough 04/21/19 13:00 05/21/19 12:59 04/21/19 13:06 Heparin Sodium (Porcine) (Heparin 5000 units/ml) 5,000 units EVERY 12 HOURS SUBQ 04/18/19 09:00 05/18/19 08:59 04/21/19 08:53 Hydralazine HCl (Apresoline) 50 mg Q6HR ORAL 04/20/19 12:00 05/20/19 11:59 04/21/19 17:40 Insulin Aspart (NovoLOG) BEFORE MEALS AND HS SUBQ 04/18/19 08:00 05/18/19 07:59 04/18/19 21:13 Labetalol HCl (Normodyne) 200 mg EVERY 12 HOURS ORAL 04/18/19 09:00 05/18/19 08:59 04/21/19 08:52 Lisinopril (Prinivil) 20 mg BID ORAL 04/19/19 18:00 05/18/19 15:44 04/21/19 17:41 Nitroglycerin (Ntg) 0.4 mg Q5MIN X 3 DOSES PRN SL Prn Chest Pain 04/18/19 06:45 05/18/19 06:44 Ondansetron HCl (Zofran) 4 mg Q4H PRN IVP Nausea & Vomiting 04/18/19 06:15 05/18/19 06:14 Polyethylene Glycol (Miralax) 17 gm DAILYPRN PRN ORAL Constipation 04/18/19 06:15 05/18/19 06:14 04/19/19 15:39 Sitagliptin Phosphate (Januvia) 25 mg ACBREAKFAST ORAL 04/19/19 06:30 05/19/19 06:29 Martita Celaya DO Apr 21, 2019 21:00
[2019-04-22] VITALS: BP 145/65
--- NOTE | 2019-04-22 | NUR ---
NURSE NOTES: 20 G IV R AC removed due to infiltration. no other abnormalities noted. 18 G R forearm inserted, no abnormalities noted.
--- NOTE | 2019-04-22 03:30 | Progress Note ---
DATE: 04/21/2019 CARDIOLOGY PROGRESS NOTE SUBJECTIVE: The patient is status post hemodialysis with ultrafiltration on 04/19/2019. Blood pressure parameters remain elevated, but continue to slowly improve. Hydralazine was advanced. OBJECTIVE: VITAL SIGNS: Blood pressure of 152/70, pulse 73, respiratory rate 20, afebrile. LUNGS: Jugular venous pressure is slightly elevated. Catheter site clean and dry. LUNGS: Diminished breath sounds. HEART: Regular rhythm and rate. Normal S1, S2 with a fourth heart sound. EXTREMITIES: No edema. Left hemiparesis. IMPRESSION: 1. Hypertensive urgency, improved. 2. End-stage renal disease, on hemodialysis. 3. Acute coronary insufficiency, precipitated by uncontrolled blood pressure and acute congestive heart failure. 4. Acute on chronic diastolic congestive heart failure with pleural effusions improving with ultrafiltration. 5. Myocardial perfusion scan with no signs of reversible ischemia. 6. CVA with left hemiparesis. 7. Pulmonary hypertension due to chronically elevated blood pressure. PLAN: 1. Hemodialysis with ultrafiltration. 2. Antiplatelet and anti-lipid therapy. 3. Titration of antihypertensives cautiously to avoid precipitous drop with dialysis and orthostatic risk. 4. No additional cardiovascular interventions planned other than medication titration. Stefano Reece M.D. DR: SABRA JOB#: [id number] CC:
[2019-04-22 04:00] VITALS: BP 152/68
--- NOTE | 2019-04-22 04:15 | Progress Note ---
DATE: 04/20/2019 CARDIOLOGY PROGRESS NOTE Late entry. SUBJECTIVE: The patient has no new complaints. Myocardial perfusion scan yesterday revealed no signs of ischemia with normal ejection fraction. Shortness of breath has decreased. Blood pressure parameters remained tenuous and elevated. OBJECTIVE: VITAL SIGNS: Blood pressure 162/77, pulse 73, respirations 18. Afebrile. LUNGS: With diminished breath sounds. Few rales. CARDIAC: Regular rhythm and rate. Normal S1, S2 with a fourth heart sound. ABDOMEN: Soft and nontender. EXTREMITIES: No edema. IMPRESSION: 1. Acute on chronic diastolic congestive heart failure with bilateral pleural effusions. 2. Acute coronary insufficiency precipitated by malignant range hypertension. 3. Hypertensive urgency. 4. Hypertensive heart disease. 5. Pulmonary hypertension. 6. Hyperlipidemia. 7. End-stage renal disease, on hemodialysis. 8. History of CVA with left hemiparesis. PLAN: 1. Discussed with Dr. Mina. 2. Continuing ultrafiltration with hemodialysis. 3. Continuing cautious up-titration of antihypertensives. 4. No additional cardiovascular interventions are indicated. 5. Anti-platelet and anti-lipid therapy advised long-term with LDL goal less than 70 and glycohemoglobin goal less than 8. Stefano Reece M.D. DR: JIM JOB#: [id number] CC:
[2019-04-22] MEDS: HydrALAZINE 50mg tab ORAL SCH ×4 (05:25→17:24)
[2019-04-22] MEDS: NovoLOG Insulin Flexpen SUBQ SCH ×3 (05:32→16:30)
[2019-04-22] MEDS: sitaGLIPtin 25mg tab ORAL SCH (05:45)
--- NOTE | 2019-04-22 07:00 | NUR ---
HAND-OFF: Report given to YUDELKA LUISKEYCASE ASSEMBLER. Pt remains stable.
[2019-04-22 07:41] LABS: BASOPHILS % (AUTO) 0.7 % (0.0-2.0); EOSINOPHILS % (AUTO) 3.5 % (0.0-3.0); HEMATOCRIT 32.8 % (42.0-52.0); HEMOGLOBIN 10.8 G/DL (14.2-18.0); MEAN CORPUSCULAR VOLUME 96 FL (80-99); NEUTROPHILS % (AUTO) 72.9 % (45.0-75.0); PLATELET COUNT 214 K/UL (150-450); RED BLOOD COUNT 3.41 M/UL (4.70-6.10); RED CELL DISTRIBUTION WIDTH 14.6 % (11.6-14.8); WHITE BLOOD COUNT 7.1 K/UL (4.8-10.8)
--- NOTE | 2019-04-22 07:54 | NUR ---
NURSE NOTES: Received report from JANELLE Allred. Patient in bed resting, no active s/s cardiac, respiratory distress noticed at this time. Patient on room air, SR with HR 77. Iv on right FA 18G, asymptomatic, patent, intact. AC shunt on left upper arm, present thrill and bruit at this time. Endorsed last HD done on 04/19, 3L out. Bed in lowest position, side rails upx3, call light within reach. Will continue to monitor.
[2019-04-22 08:00] VITALS: BP 156/66
--- NOTE | 2019-04-22 08:18 | NUR ---
NURSE NOTES: Left message Dr. Mina regarding HD. Awaiting for callback. Will continue to monitor.
[2019-04-22 08:39] LABS: ANION GAP 14 mmol/L (5-15); BLOOD UREA NITROGEN 70 mg/dL (7-18); CALCIUM 8.7 MG/DL (8.5-10.1); CARBON DIOXIDE 21 MMOL/L (21-32); CHLORIDE 105 MMOL/L (98-107); CREATININE 12.6 MG/DL (0.55-1.30); POTASSIUM 4.8 MMOL/L (3.5-5.1); SODIUM 139 MMOL/L (136-145)
--- NOTE | 2019-04-22 08:43 | NUR ---
RADIOLOGY DEPT., CHEST X-RAY DONE.-P.DYE
[2019-04-22] MEDS: Lisinopril 20mg tab ORAL SCH ×2 (09:00→17:23)
[2019-04-22] MEDS: Labetalol 200mg tab ORAL SCH (09:00)
[2019-04-22] MEDS: Aspirin Baby 81mg ORAL SCH (09:46)
[2019-04-22] MEDS: Heparin 5000 units/ml inj SUBQ SCH (09:49)
--- NOTE | 2019-04-22 11:38 | NUR ---
NURSE NOTES: Dr. Jensen made aware patient receiving HD now and asked for clarification for discharge order. Per Dr. Mikey MD will put discharge order.
--- NOTE | 2019-04-22 11:41 | NUR ---
*-* INSURANCE *--* UPDATED CLINICALS AND REVIEWS HAVE BEEN FAXED TO: [facility] PARISHM: TIMA LOERA P- [phone] - OPT-1 F- [phone]............REVIEW/CLINICAL
--- NOTE | 2019-04-22 11:42 | Diagnostic Imaging Report ---
Indication: Cough Technique: One view of the chest Comparison: 04/18/2019 Findings: Body habitus limits evaluation. The heart is borderline enlarged. Previously demonstrated basilar infiltrates and pleural fluid have cleared. Lungs and pleural spaces are currently clear. Impression: No acute process
[2019-04-22 12:00] VITALS: BP 170/73
--- NOTE | 2019-04-22 12:41 | NUR ---
CASE MANAGEMENT:REVIEW 04/22/19 SI: CHF W/BILATERAL EFFUSION. CHEST PAIN 98.1 79 20 156/66 96% NC 1L BUN 70; CRET 12.6; RBC 3.41; H/H 10.8/ 32.8 IS: HYDRALAZINE PO QD LISINOPRIL PO BID LABETALOL PO Q12 ASA PO QD *:2E TELE DCP: RETURN HOME
--- NOTE | 2019-04-22 14:00 | NUR ---
NURSE NOTES: HD done today, 3L out, patient tolerating well.
[2019-04-22 16:00] VITALS: BP 165/79
[2019-04-22] MEDS ORDERED: PRINIVIL20 MG ORAL (16:40)
[2019-04-22] MEDS ORDERED: APRESOLINE50 MG ORAL (16:40)
[2019-04-22] MEDS ORDERED: ASPIRIN81 MG ORAL (16:40)
[2019-04-22 17:24] VITALS: BP 165/79
--- NOTE | 2019-04-22 17:50 | Nephrology Progress Note ---
Assessment/Plan Problem List: (1) CVA, old, hemiparesis (2) Nephropathy due to secondary diabetes (3) Hypertensive nephrosclerosis (4) End-stage renal disease (5) Pulmonary edema (6) Chest pain Plan dialysis 04/22 stable ,hydralazine added, titration bp meds as outpatient, avoid hypotension on HD Subjective Constitutional: Reports: no symptoms HEENT: Reports: no symptoms Genitourinary: Reports: no symptoms Neurologic/Psychiatric: Reports: pre-existing deficit Objective Objective Last 24 Hour Vital Signs Date Time Temp Pulse Resp B/P (MAP) Pulse Ox O2 Delivery O2 Flow Rate FiO2 04/22/19 17:24 165/79 04/22/19 17:23 165/79 04/22/19 16:00 97.7 75 20 165/79 (107) 96 04/22/19 12:42 170/73 04/22/19 12:00 97.9 76 20 170/73 (105) 95 04/22/19 12:00 81 04/22/19 09:00 Nasal Cannula 1.0 04/22/19 09:00 156/66 04/22/19 09:00 156/66 04/22/19 09:00 79 156/66 04/22/19 08:00 98.1 79 20 156/66 (96) 96 04/22/19 08:00 78 04/22/19 05:25 154/69 04/22/19 04:00 98.1 77 20 152/68 (96) 99 04/22/19 04:00 77 04/22/19 00:00 97.8 75 18 145/65 (91) 98 04/22/19 00:00 72 04/21/19 23:07 145/63 04/21/19 21:12 80 165/76 04/21/19 21:00 Nasal Cannula 1.0 04/21/19 20:00 83 04/21/19 20:00 98.2 73 19 165/76 (105) 97 04/21/19 18:00 79 Intake and Output 04/21/19 04/22/19 19:00 07:00 Intake Total 360 ml Output Total 150 ml 100 ml Balance 210 ml -100 ml Intake Oral 360 ml Output Urine Total 150 ml 100 ml # Bowel Movements 1 Laboratory Tests 04/22/19 07:18: White Blood Count 7.1, Red Blood Count 3.41L, Hemoglobin 10.8L, Hematocrit 32.8L , Mean Corpuscular Volume 96, Mean Corpuscular Hemoglobin 31.8H, Mean Corpuscular Hemoglobin Concent 33.1, Red Cell Distribution Width 14.6, Platelet Count 214, Mean Platelet Volume 6.1L, Neutrophils (%) (Auto) 72.9, Lymphocytes ( %) (Auto) 14.0L, Monocytes (%) (Auto) 9.0, Eosinophils (%) (Auto) 3.5H, Basophils (%) (Auto) 0.7, Sodium Level 139, Potassium Level 4.8, Chloride Level 105, Carbon Dioxide Level 21, Anion Gap 14, Blood Urea Nitrogen 70H, Creatinine 12.6H, Estimat Glomerular Filtration Rate 4.1, Glucose Level 101, Calcium Level 8.7, Magnesium Level 2.2 Height (Feet): 5 Height (Inches): 6.00 Weight (Pounds): 189 General Appearance: no apparent distress, alert EENT: normal ENT inspection Neck: normal alignment Cardiovascular: regular rhythm Respiratory/Chest: lungs clear, normal breath sounds Abdomen: non tender Extremities: other - no edema Neurologic: motor weakness Sai Mina MD Apr 22, 2019 17:50
--- NOTE | 2019-04-22 18:20 | NUR ---
NURSE NOTES: Patient discharged to home per Dr. Jensen. IV removed, ID removed and placed in shredder. central supply aide returned to body art technician. Patient discharged with all belongings. Family member, , at bedside. Patient taking private vehicle per patient's preference in a stable condition.
--- NOTE | 2019-04-23 02:30 | Progress Note ---
DATE: 04/22/2019 CARDIOLOGY PROGRESS NOTE SUBJECTIVE: The patient is status post hemodialysis with ultrafiltration. Blood pressure parameters remain elevated, but slightly improved. OBJECTIVE: VITAL SIGNS: Blood pressure 165/79, pulse 75, respirations 20. LUNGS: Clear. CARDIAC: Regular. Normal S1, S2 with a fourth heart sound. ABDOMEN: Soft. EXTREMITIES: No edema. IMPRESSION: 1. Hypertensive urgency, resolved. 2. Hypertensive heart disease with improving blood pressure control. 3. End-stage renal disease, on hemodialysis. 4. Diabetes mellitus on insulin. 5. Pulmonary hypertension. 6. Acute myocardial ischemia, resolved. 7. Acute on chronic diastolic congestive heart failure, now clinically compensated. PLAN: 1. Stable for outpatient followup. 2. We will need continued monitoring of blood pressure parameters and titration of cardiovascular medications as ongoing hemodialysis with ultrafiltration occurs. 3. Need to avoid rapid drop in blood pressure and post hemodialysis hypotension as such slow titration of medications will need to continue as an outpatient. Stefano Reece M.D. DR: SABRA JOB#: [id number] CC:
--- NOTE | 2019-04-23 15:55 | NUR ---
*-* INSURANCE *--* UPDATED CLINICALS AND REVIEWS HAVE BEEN FAXED TO: [facility] PARISHM: TIMA LOERA P- [phone] - OPT-1 F- [phone]............REVIEW/CLINICAL
--- NOTE | 2019-04-24 08:01 | Discharge Summary ---
Discharge Summary Discharge Summary _ DATE OF ADMISSION: 04/18/2019 DATE OF DISCHARGE: 04/22/2019 DISCHARGED BY: Dr. Jensen REASON FOR ADMISSION: 58 years old male with past medical history of end-stage renal disease, on hemodialysis, diabetes mellitus, hypertension, hyperlipidemia, history of CVA with left hemiparesis, presented to emergency department with shortness of breath for one day. Vital signs revealed severely elevated blood pressure 215/96. Chest x-ray revealed interstitial edema consistent with CHF. CTA of the chest was nondiagnostic with regards to pulmonary emboli or aortic dissection. No evidence of aortic aneurysm. Moderate bilateral pleural effusions. CT of the chest, abdomen, and pelvis revealed bilateral pleural effusion. No evidence of acute inflammatory or obstructive process within the abdomen or pelvis. No free intra-abdominal air or fluid. Laboratory work-up revealed mild leukocytosis WBC 11.6 , hemoglobin 12.3, hematocrit 37.2. Potassium 5.4. B UN 85, creatinine 13., consistent with known history of end-stage renal disease. Troponin negative. EKG revealed sinus rhythm no acute ischemic changes. Pro BNP [id number]. Urine toxicology screen was negative. Urinalysis revealed +4 protein, but no evidence of urinary tract infection. Patient was provided with antihypertensive and was admitted to telemetry floor for further management. CONSULTANTS: multi line claims adjuster infrastructure technician Dr. Mina [facility] COURSE: Patient admitted to telemetry floor. Slipper Maker and infrastructure technician followed. Hemodialysis was arranged as per infrastructure technician recommendations with close monitoring of volumes and cardiorenal parameters. Echocardiogram revealed preserved ejection fraction of 65% and no evidence of wall motion abnormality. Mild left ventricular hypertrophy. Right ventricular systolic pressure of 45 , consistent with moderate pulmonary hypertension. Myocardial perfusion scan test was nonischemic with calculated ejection fraction 56%. There was apparent hypoperfusion in the inferior wall which may be due to diaphragmatic attenuation . Antiplatelet therapy with aspirin continued. Blood pressure was managed with beta-que , JENNIFER inhibitor and hydralazine. Blood pressure parameters were closely monitored . Cardiovascular medications were titrated as needed. Blood pressure stabilized. Slipper Maker recommended to avoid rapid drop in blood pressure due to post hemodialysis hypotension , and continue with slow titration as outpatient. DVT prophylaxis provided. Blood sugar was managed with Januvia and sliding scale of insulin as needed. Hemoglobin and hematocrit we re closely monitored with goal to keep hemoglobin above 7. Prior to discharge hemoglobin 10.8 , hematocrit 32.8. Supportive care provided. Pain management was addressed as needed. Bowel regimen instituted. FINAL DIAGNOSES: Hypertensive urgency, resolved Hypertensive heart disease End-stage renal disease, on hemodialysis Nephropathy due to diabetes Hypertensive nephrosclerosis Diabetes mellitus Pulmonary hypertension Acute myocardial ischemia, precipitated by malignant range hypertension , resolved Acute on chronic diastolic congestive heart failure with bilateral pleural effusion Hyperlipidemia History of CVA with left hemiparesis Anemia of renal disease DISCHARGE MEDICATIONS: See Medication Reconciliation list. DISCHARGE INSTRUCTIONS: Patient was discharged home . Follow up with primary care provider in one week. I have been assigned to dictate discharge summary for this account. I was not involved in the patient's management. Danay Dale NP Apr 24, 2019 08:01
--- NOTE | 2019-04-27 17:20 | Cardiology Report ---
APPROVED REPORT EKG Measurement Heart [id number] Sinus rhythm with premature atrial complexes LVH with repoarization abn Possible Lateral infarct, age undetermined Abnormal ECG
--- NOTE | 2019-04-27 17:20 | Cardiology Report ---
APPROVED REPORT EKG Measurement Heart [id number] Normal sinus rhythm Prolonged QT Abnormal ECG
--- NOTE | 2019-04-28 12:10 | Cardiology Report ---
APPROVED REPORT EXAM: Two-dimensional and M-mode echocardiogram with Doppler and color Doppler. INDICATION Chest Pain M-Mode DIMENSIONS IVSd1.3 (0.7-1.1cm)Left Atrium (MM)4.2 (1.6-4.0cm) LVDd5.8 (3.5-5.6cm)Aortic Root3.1 (2.0-3.7cm) PWd1.3 (0.7-1.1cm)Aortic Cusp Exc.1.7 (1.5-2.0cm) LVDs3.9 (2.5-4.0cm) PWs1.4 cm Technically difficult study due to poor acoustic windows. Study quality precludes accurate assessment of regional wall motion. Normal left ventricular chamber size, systolic function and wall motion. Mild left ventricular hypertrophy. Left ventricular ejection fraction estimated to be 65 %. Anterior Echo-free space, may be due to pericardial fat or effusion. Large pleural effusion visualized. Left atrial size at upper limits of normal. Right cardiac chamber sizes are within normal limits. Focal aortic valve sclerosis with adequate cusp excursion. Thickened mitral valve leaflets with normal excursion. Mitral annulus and aortic root calcification. Pulmonic valve not well visualized. Normal tricuspid valve structure. IVC is normal in size without physiological collapse. A color flow and spectral Doppler study was performed and revealed:. Mild mitral regurgitation. Normal left ventricular diastolic function. Mild tricuspid regurgitation. Tricuspid systolic velocities suggests peak right ventricular systolic pressure of 45 mmHg, consistent with moderate pulmonary hypertension. No pulmonic regurgitation present.
== END 2019-04-22 18:20 | disposition home or self-care (01) | DRG 291 ==
LOC: EMR 02:40 → 2E 03:42 → EDBEDREQ 04:23
PROC: 5A1D70Z Performance of Urinary Filtration, Intermittent, Less than 6 Hours Per Day (ICD-10-PCS; principal; 2019-04-18)
DX: I13.2 Hypertensive heart and chronic kidney disease with heart failure and with stage 5 chronic kidney disease, or end stage renal disease (principal); I50.33 Acute on chronic diastolic (congestive) heart failure; N18.6 End stage renal disease; I69.354 Hemiplegia and hemiparesis following cerebral infarction affecting left non-dominant side; I24.8 Other forms of acute ischemic heart disease; E11.22 Type 2 diabetes mellitus with diabetic chronic kidney disease; Z99.2 Dependence on renal dialysis; I11.0 Hypertensive heart disease with heart failure; I27.20 Pulmonary hypertension, unspecified; I16.0 Hypertensive urgency; E78.5 Hyperlipidemia, unspecified; R07.9 Chest pain, unspecified
CPT/HCPCS: 36415; 71045; 71275; 74174; 78452; 80048; 80053; 80307; 81003; 82962; 83690; 83735; 83880; 84484; 85025; 85610; 85730; 87081; 93005; 93017; 93306; 96374; 99285; J1815; J2785

== ENCOUNTER 2019-08-26 18:41 | Inpatient (IN) | payer MEDICARE, OTHER ==
[~2019-08-26] VITALS: Ht 170.2 cm; Wt 82.1 kg
[~2019-08-26 18:41] MED LIST: APRESOLINE50 MG ORAL; ASPIRIN81 MG ORAL; JANUVIA25 MG ORAL; LABETALOL HCL200 MG ORAL; PRINIVIL20 MG ORAL
--- NOTE | 2019-08-26 19:20 | NUR ---
ED Nurse Note: pt relates last dialysis thurs and that receives dialysis tues and thurs only
[2019-08-26] MEDS ORDERED: DiphenhydrAMINE 50mg/ml Inj IVP ONE (19:30)
--- NOTE | 2019-08-26 19:30 | Emergency Room Report ---
History of Present Illness General Chief Complaint: Flu Like Symptoms Source: Patient, Family Member Present Illness HPI 58-year-old male history of hypertension history of end-stage renal disease gets dialysis Monday presents with cough, headache, nausea, vomiting x1 day, no fevers no chills no shortness of breath no chest pain, no aggravating or relieving factors severity is moderate, intermittent he denies any abdominal pain no diarrhea patient presents for evaluation Allergies: Coded Allergies: No Known Allergies (Unverified , 04/18/19) Patient History Past Medical History: see triage record Reviewed Nursing Documentation: PMH: Agreed; PSxH: Agreed Nursing Documentation-PMH Past Medical History: No History, Except For Hx Hypertension: Yes Hx Diabetes: Yes Hx Cancer: No Hx Gastrointestinal Problems: No Hx Dialysis: Yes - L. upper arm shunt Hx Neurological Problems: Yes Hx Cerebrovascular Accident: Yes Hx Weakness: Yes - L side Review of Systems All Other Systems: negative except mentioned in HPI Physical Exam Vital Signs Date Time Temp Pulse Resp B/P (MAP) Pulse Ox O2 Delivery O2 Flow Rate FiO2 08/26/19 18:59 97.7 78 20 207/85 (125) 91 Room Air Sp02 EP Interpretation: reviewed, normal General Appearance: well appearing, no apparent distress, alert Head: normocephalic, atraumatic Eyes: bilateral eye PERRL, bilateral eye EOMI ENT: uvula midline, moist mucus membranes Neck: supple, thyroid normal, supple/symm/no masses Respiratory: lungs clear, no respiratory distress, no retraction, no accessory muscle use Cardiovascular #1: normal peripheral pulses, regular rate, rhythm, no edema, no gallop, no murmur Gastrointestinal: non tender, soft, no guarding, no rebound Musculoskeletal: normal inspection Neurologic: alert, oriented x3 Psychiatric: mood/affect normal Skin: no rash, warm/dry Procedures Critical Care Time Critical Care Time Given the critical condition in which the patient arrived, the patient was immediately assessed by myself and the nurse, and cardiac monitoring initiated due to the potential for rapid decompensation of the patient's clinical condition. During the course of the patient's stay, I spent a considerable amount of time at the bedside performing serial re-evaluations of the patient's hemodynamic and clinical status because of the recognized potential threat to life or limb in this condition. I then had a chance to review not only all of the available current laboratory and radiographic studies obtained today, but I also reviewed old records available to me at the time. Additionally, any ancillary information available including production mechanic tin cans records were reviewed. Sequential vital signs were obtained. Critical Care time of 37 minutes was performed exclusive of billable procedures. Medical Decision Making Diagnostic Impression: Primary Impression: Volume overload Qualified Codes: E87.70 - Fluid overload, unspecified Additional Impressions: Hyperkalemia Pulmonary edema Qualified Codes: J81.0 - Acute pulmonary edema ER Course 58-year-old male presents with shortness of breath, cough, headache, patient with hypertensive emergency possible volume overload possible electrolyte imbalance Patient given migraine cocktail additionally patient found to be hyperkalemic and volume overloaded Patient given Lasix, hyperkalemia cocktail We will admit patient for dialysis Laboratory Tests Test 08/26/19 19:30 White Blood Count 7.4 K/UL (4.8-10.8) Red Blood Count 3.30 M/UL (4.70-6.10) L Hemoglobin 10.3 G/DL (14.2-18.0) L Hematocrit 33.3 % (42.0-52.0) L Mean Corpuscular Volume 101 FL (80-99) H Mean Corpuscular Hemoglobin 31.3 PG (27.0-31.0) H Mean Corpuscular Hemoglobin Concent 31.0 G/DL (32.0-36.0) L Red Cell Distribution Width 15.8 % (11.6-14.8) H Platelet Count 211 K/UL (150-450) Mean Platelet Volume 7.1 FL (6.5-10.1) Neutrophils (%) (Auto) 81.9 % (45.0-75.0) H Lymphocytes (%) (Auto) 10.4 % (20.0-45.0) L Monocytes (%) (Auto) 6.2 % (1.0-10.0) Eosinophils (%) (Auto) 0.9 % (0.0-3.0) Basophils (%) (Auto) 0.6 % (0.0-2.0) Sodium Level 145 MMOL/L (136-145) Potassium Level 6.2 MMOL/L (3.5-5.1) *H Chloride Level 106 MMOL/L (98-107) Carbon Dioxide Level 25 MMOL/L (21-32) Anion Gap 14 mmol/L (5-15) Blood Urea Nitrogen 89 mg/dL (7-18) H Creatinine 14.2 MG/DL (0.55-1.30) H Estimate Glomerular Filtration Rate 3.6 mL/min (>60) Glucose Level 113 MG/DL (74-106) H Calcium Level 8.9 MG/DL (8.5-10.1) Total Bilirubin 0.5 MG/DL (0.2-1.0) Aspartate Amino Transferase (AST) 12 U/L (15-37) L Alanine Aminotransferase (ALT) 22 U/L (12-78) Alkaline Phosphatase 70 U/L (46-116) Troponin I 0.027 ng/mL (0.000-0.056) Pro-B-Type Natriuretic Peptide > 70980 pg/mL (0-125) H Total Protein 7.4 G/DL (6.4-8.2) Albumin 3.8 G/DL (3.4-5.0) Globulin 3.6 g/dL Albumin/Globulin Ratio 1.1 (1.0-2.7) Lipase 211 U/L (73-393) Microbiology Date/Time Source Procedure Growth Status 08/26/19 19:30 Nasal Nares - Final Complete 08/26/19 19:30 Nasal Nares - Final Complete EKG Diagnostic Results EKG Time: 19:35 EP Interpretation: NSR, rate 76, QTc 463, no acute ST elevations, normal axis Rhythm Strip Diag. Results Rhythm Strip Time: 20:43 EP Interpretation: yes Rate: 80 Rhythm: NSR, no PVC's, no ectopy Chest X-Ray Diagnostic Results Chest X-Ray Diagnostic Results : Chest X-Ray Ordered: Yes # of Views/Limited/Complete: 1 View Indication: Shortness of Breath EP Interpretation: Yes Interpretation: other - Pulmonary Edema Impression: Other - Pulmonary Edema Electronically Signed by: Shlomo Cervantes MD Last Vital Signs Date Time Temp Pulse Resp B/P (MAP) Pulse Ox O2 Delivery O2 Flow Rate FiO2 08/26/19 18:59 97.7 78 20 207/85 (125) 91 Room Air Disposition: ADMITTED INPATIENT Condition: Serious Shlomo Cervantes MD Aug 26, 2019 19:30
[2019-08-26 19:47] VITALS: BP 207/85
--- NOTE | 2019-08-26 19:50 | NUR ---
ER Nurse Note: Pt walked in c/o headache, neck pain, generalized weakness for few days. Pt has flstula on LT arm for dialysis Monday and . Last dialysis was 08/22. Pt is alart awake x3, BP 205/100. Pt came with his personal wheelchair. Mayte Barone, cell phone number . All safety measures met; will conitnue to [facility].
[2019-08-26 19:53] LABS: BASOPHILS % (AUTO) 0.6 % (0.0-2.0); EOSINOPHILS % (AUTO) 0.9 % (0.0-3.0); HEMATOCRIT 33.3 % (42.0-52.0); HEMOGLOBIN 10.3 G/DL (14.2-18.0); LYMPHOCYTES % (AUTO) 10.4 % (20.0-45.0); MEAN CORPUSCULAR VOLUME 101 FL (80-99); MONOCYTES % (AUTO) 6.2 % (1.0-10.0); NEUTROPHILS % (AUTO) 81.9 % (45.0-75.0); PLATELET COUNT 211 K/UL (150-450); RED CELL DISTRIBUTION WIDTH 15.8 % (11.6-14.8); WHITE BLOOD COUNT 7.4 K/UL (4.8-10.8)
[2019-08-26 20:28] LABS: ALANINE AMINOTRANSFERASE 22 U/L (12-78); ALBUMIN 3.8 G/DL (3.4-5.0); ALBUMIN/GLOBULIN RATIO 1.1 (1.0-2.7); ALKALINE PHOSPHATASE 70 U/L (46-116); ANION GAP 14 mmol/L (5-15); ASPARTATE AMINO TRANSFERASE 12 U/L (15-37); BILIRUBIN,TOTAL 0.5 MG/DL (0.2-1.0); BLOOD UREA NITROGEN 89 mg/dL (7-18); CALCIUM 8.9 MG/DL (8.5-10.1); CARBON DIOXIDE 25 MMOL/L (21-32); CHLORIDE 106 MMOL/L (98-107); CREATININE 14.2 MG/DL (0.55-1.30); SODIUM 145 MMOL/L (136-145)
[2019-08-26 20:30] LABS: POTASSIUM 6.2 MMOL/L (3.5-5.1)
[2019-08-26] MEDS ORDERED: Sodium Polystyrene Sulfonate 15gm Powder ORAL ONE (20:45)
[2019-08-26] MEDS ORDERED: Calcium Gluconate 1gm/10ml vial IVP ONE (20:45)
[2019-08-26] MEDS ORDERED: Insulin Human Regular 100units/ml 3ml IV ONE (20:45)
[2019-08-26] MEDS ORDERED: Labetalol 5mg/ml 20ml vial IV ONE (20:45)
--- NOTE | 2019-08-26 21:00 | Diagnostic Imaging Report ---
Indications: Left-sided weakness Technique: Spiral acquisitions obtained through the brain. Angled axial and coronal 5 x 5 mm slices were reconstructed. Total dose length product 1363 mGycm. CTDI vol(s) 62 mGy. Dose reduction achieved using automated exposure control Comparison: None. Findings: Sizable old infarct is seen in the right basal ganglia, resulting in ex vacuo dilatation of the right lateral ventricle. Old infarct is seen in the posterior right temporal lobe extending into the occipital lobe. No acute intracranial hemorrhage or edema. No mass effect nor midline shift. There is generalized mild age-related volume loss. There is periventricular low-attenuation consistent with chronic microvascular ischemic changes. The calvarium is intact. There is bilateral mastoid opacification and sclerosis. The visualized orbits and sinuses are unremarkable. Impression: Negative for acute intracranial bleed or mass effect Multiple old infarcts as described Other chronic and age-related changes Chronic and acute mastoid disease bilaterally This agrees with the preliminary interpretation provided overnight by [facility] teleradiology service. The CT scanner at [facility] is accredited by the [employer] and the scans are performed using protocols designed to limit radiation exposure to as low as reasonably achievable to attain images of sufficient resolution adequate for diagnostic evaluation.
[2019-08-26 21:30] VITALS: BP 187/58
[2019-08-26 22:32] VITALS: BP 155/64
--- NOTE | 2019-08-26 22:34 | NUR ---
ER Nurse Note: BP meds given; SBP >180. BP 155/64 after hydralazine administration. Pt stated no dizziness, no shortness of breath, denies chest pain. Pt unable to urinate. Will continue to montior.
[2019-08-26] MEDS ORDERED: HYDRALAZINE HCL50 MG ORAL (23:49)
[2019-08-27] VITALS (8 sets, daily range): BP systolic 153–180; BP diastolic 60–82
--- NOTE | 2019-08-27 00:11 | NUR ---
ER Nurse Note: Pt calm, cooperative, no signs of distress. All orders completed per ERMD orders. No urine and no BM. SLIV patent. All safety measures met; will continue to montior.
[2019-08-27] MEDS ORDERED: Labetalol 200mg tab ORAL ONE (04:30)
--- NOTE | 2019-08-27 05:24 | NUR ---
ER Nurse Note: Pt asleep, no signs of distress, RA. Pt stated he is more comfortable sleeping in an upright position. Pt voided with urinal. Will continue to montior.
--- NOTE | 2019-08-27 06:22 | NUR ---
ER Nurse Note: Dr. Parks contacted and left a voicemail for inpatient orders. Pt stable, no signs of distress. Pt asleep, calm. All safety measures met; will continue to montior.
--- NOTE | 2019-08-27 07:16 | NUR ---
ER Nurse Note: Report given to JANELLE Yuen for continuity of care. No signs of distress. All orders completed. RN made aware of blood pressure. All safety measures met.
--- NOTE | 2019-08-27 08:13 | NUR ---
ED Nurse Note: Report given to Garland LUIS
--- NOTE | 2019-08-27 08:20 | NUR ---
NURSE NOTES: Admited patient at 8:40am from ED via gurney to TELE Rm 221-1. Received report from JANELLE Yuen. Patient is AAO X4, able to make needs known, noted pt had CVA with left sided weakness. Patient is bedbound. Denies any pain at this time. No s/s of respiratory or acute distress noted. Upon arrival to the floor, patient's blood pressure is 153/82. Skin is intact. Bed is on lowest position, with bedside rails up x3. Brakes engaged for safety. Call light is within easy reach. All admisssion orders and interventions acknowledged and carried out. Admission orders in by MD Parks and Vicki. Patient is a dialysis patient and will be dialyzed today per MD order, noted Fistula on left arm. IV site in RFA 22G SL. Will continue to monitor patient as planned.
--- NOTE | 2019-08-27 09:10 | Consultation ---
Consult Note Consult Note I was asked to evaluate the patient at the request of Dr. Parks immediately for dialysis management. Patient was seen in room 221 patient. He is his is at the bedside. Patient states that he is on hemodialysis twice a week on Tuesdays and . He is due for his dialysis today. He presented to emergency room with increasing shortness of breath and hyperkalemia. Initial evaluation was done. Urgent hemodialysis ordered. Blood pressure medications adjusted. ER: 58-year-old male history of hypertension history of end-stage renal disease gets dialysis Monday presents with cough, headache, nausea, vomiting x1 day, no fevers no chills no shortness of breath no chest pain, no aggravating or relieving factors severity is moderate, intermittent he denies any abdominal pain no diarrhea patient presents for evaluation No Known Allergies (Unverified , 04/18/19) Past Medical History: No History, Except For Hx Hypertension: Yes Hx Diabetes: Yes Hx Dialysis: Yes - L. upper arm shunt Hx Neurological Problems: Yes Hx Cerebrovascular Accident: Yes Hx Weakness: Yes - L side examined data reviewed Assessment/Plan ESRD High K Volume overload DM s/p toe amputation s/p CVA with left denisse HD + UF + Low K bath BP meds keep BP and BS in check 2D echo per orders Yonatan Cohen MD Aug 27, 2019 09:09
--- NOTE | 2019-08-27 11:10 | NUR ---
*-* NO INSURANCE INFORMATION IN THE BAR UNABLE TO SEND CLINICALS *--*
[2019-08-27] MEDS: Docusate 100mg cap ORAL SCH ×2 (12:11→17:33)
[2019-08-27] MEDS ORDERED: HydrALAZINE 50mg tab ORAL SCH (14:00)
--- NOTE | 2019-08-27 14:39 | NUR ---
NURSE NOTES: BP 204/91 during dialysis. Administer clonidine 0.1 mg and hydralazine 50mg. Will continue to monitor patient.
--- NOTE | 2019-08-27 15:30 | History and Physical Report ---
DATE OF ADMISSION: 08/27/2019 HISTORY OF PRESENT ILLNESS: This is a 58-year-old male. He has a history of ESRD and is on dialysis. He presented with cough, nausea, and headache. The patient is due for dialysis today. PAST HISTORY: Hypertension, diabetes mellitus. PREVIOUS SURGERIES: Include left AV shunt. Previous CVA noted. HOME MEDICATIONS: Reviewed and reconciled in chart. REVIEW OF SYSTEMS: Denies any headaches, hematemesis, melena, or hematochezia. PHYSICAL EXAMINATION: GENERAL: Reveals a 58-year-old male. HEENT: Unremarkable. LUNGS: Decreased breath sounds bilaterally. HEART: Normal heart sounds. ABDOMEN: Soft. EXTREMITIES: There is superficial edema. LABORATORY DATA: Lab testing is notable for a hemoglobin of 10. Creatinine of 14, potassium 6. Troponin 0.02. BNP 77846. X-ray chest suggestive of pulmonary edema. Head CT negative. IMPRESSION: 1. Pulmonary edema. 2. ESRD, on dialysis. 3. Diabetes mellitus. DISCUSSION: Admit to the hospital. We will initiate dialysis. Continue medications. 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 Javier Parks M.D. DR: PRANAV JOB#: [id number] CC:
--- NOTE | 2019-08-27 15:35 | NUR ---
*-* INSURANCE *-* CLINICALS AND REVIEWS HAVE BEEN FAXED TO: [facility] Ref [id number] CM: Lamar #[phone] fax#[phone]
--- NOTE | 2019-08-27 15:47 | NUR ---
CASE MANAGEMENT:REVIEW 58 YR OLD MALE PRESENTED TO ER PMH: ESRD ON HD CC: FLU LIKE SYMPTOMS. HEAD AND BODY ACHES. NAUSEA AND VOMITING SI: HYPERKALEMIA. FLUID OVERLOAD 97.7 78 20 207/85 91% ON RA K+6.2 BUN+89 CR+14.2 IS: IV COMPAZINE IV BENADRYL IV HYDRALAZINE IV LABETALOL IV LASIX IV INSULIN KAYEXALATE IV D50W IV CA GLUCONATE CT HEAD CXR : TO TELEMETRY DCP: FROM HOME INTERQUAL CRITERIA MET
--- NOTE | 2019-08-27 16:18 | Diagnostic Imaging Report ---
Indication: Cough, shortness of breath Technique: One view of the chest Comparison: 04/22/2019 Findings: Body habitus limits evaluation. There is interim development of pleural fluid on the left. There is interim development of fairly extensive bilateral interstitial and airspace edema. The heart size is difficult to assess. Impression: Bilateral interstitial and airspace infiltrates versus edema. Moderate left pleural effusion
--- NOTE | 2019-08-27 16:26 | NUR ---
ST NOTES: REFERRED FOR SWALLOW EVAL BY DR. MICHAEL, SEE FULL REPORT. DYSPHAGIA RISK FACTORS FOR THIS 58 Y.O.M.: ACUTE ISSUES: HYPERKALEMIA, FLU-LIKE SX, COUGH, NAUSEA AND VOMITED X 1, FLUID OVERLOAD, PULMONARY EDEMA, SOB ON ROOM AIR AND RESP RATE 20 WITH SP02 91%. LIVES AT HOME AND IS DISABLED. 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 NO POLST/AD REGARDING ARTIFICIAL NUTRITION IF NEEDS. [place] [facility] [place] WAS ON CCHO REGULAR TEXTURE DIET AND THIN LIQUIDS FROM HOME ? DIET TYPE BUT NOW ON A RENAL REGULAR TEXTURE DIET AND THIN LIQUIDS WITH 100% INTAKE. PATIENT DENIES PROBLEMS WITH EATING/DRINKING. ALERT AND ABLE TO EXPRESS BASIC NEEDS IN SCOTTISH. HOSPITALIZED AT [facility] WITH MIN PT ONLY OUTPT. HAS LEFT-SIDED WEAKNESS. INITIAL IMPRESSIONS S/S OF AT LEAST A MILD ORAL DYSPHAGIA GROSSLY FUNCTIONAL OROMOTOR SKILLS, VOICE CLEAR, AND FAIR COUGH WITH ADEQUATE DENTITION. GIVEN THIN LIQUIDS VIA STRAW SEQUENTIAL SIP, ABLE TO SWALLOW BUT STOPPED AFTER A FEW SIPS. NO OVERT ASPIRATION GIVEN PUREED TSP, NO OVERT ASPIRATION. GIVEN MASTICATED SOLID 1/2 CRACKER, SLOWER CHEWING 15 SECONDS WITH MIN ORAL RESIDUE LEFT SIDE OF TONGUE, CLEARED WITH LIQUID WASH. HAS SILENT ASPIRATION RISK BUT LUNGS ARE CLEAR NOW. GOOD INTAKE OF REG TEXTURE DIET BUT CANNOT CUT HIS OWN FOOD. RECOMMENDATIONS: CONSIDER DOWNGRADING TO [facility] SOFT CHOPPED AND CONTINUE WITH THIN LIQUIDS WITH POSTED ASPIRATION PRECAUTIONS WITH ASSIST. PER RD RENAL AND CCHO-MED DIET TYPE RECOMMENDED. MOD BARIUM SWALLOW STUDY (MBSS) AND SKILLED DYSPHAGIA MANAGEMENT AND TX COMPLETE COG-COM EVAL/TX EDUCATED/TRAINED STAFF IN POSTED PRECAUTIONS
[2019-08-27] MEDS: NovoLOG Insulin Flexpen SUBQ SCH ×2 (17:00→21:00)
--- NOTE | 2019-08-27 19:30 | NUR ---
NURSE NOTES: Received patient from JANELLE Agarwal. Patient is awake laying in bed. is sitting by his side. There are no signs of distress or signs of pain. He is AO x 3. He is able to ambulate with assistance. He has left sided weakness. Checked IV site patent and flushed, there are no signs of bleeding, erythema, or infiltration. He has fistula on Left upper arm where he receives dialysis. Bed positioned in lowest position with brakes on, and side railsx3. Call light within reach. Will continue plan of care.
--- NOTE | 2019-08-27 19:40 | NUR ---
HAND-OFF: Report given to ISAURA, JANELLE's. PATIENT WAS DIALYZED AND 3L OUT. ENDORSED PLAN OF CARE. PATIENT IS IN STABLE CONDITION.
[2019-08-27] MEDS ORDERED: Lisinopril 20mg tab ORAL SCH (21:00)
[2019-08-27] MEDS: Labetalol 200mg tab ORAL SCH (21:37)
[2019-08-27] MEDS: HydrALAZINE 50mg tab ORAL SCH (21:38)
[2019-08-27] MEDS: Lisinopril 20mg tab ORAL SCH (21:39)
[2019-08-28] VITALS: BP 174/70
[2019-08-28 04:00] VITALS: BP 178/73
[2019-08-28] MEDS: NovoLOG Insulin Flexpen SUBQ SCH ×4 (06:30→21:01)
[2019-08-28] MEDS: HydrALAZINE 50mg tab ORAL SCH ×3 (06:45→23:22)
--- NOTE | 2019-08-28 07:30 | NUR ---
HAND-OFF: Report given to JANELLE Agarwal. Patient is awake lying semi-larry's; resting comfortably. at bedside. In stable condition.
--- NOTE | 2019-08-28 07:30 | NUR ---
Received patient from Marylou RN's. Patient is awake in bed. is at bedside. Denies any pain at this time. No signs of distress noted. Patient is is AAO x 3. Noted patient has left sided weakness. IV site is intact and patent, no signs of bleeding, erythema, or infiltration noted. Noted patient has fistula on Left upper arm for dialysis. Bed is in lowest position with bedside rails up X3, brakes engaged for safety, call light is within reach. Will continue with the plan of care.
[2019-08-28 08:00] VITALS: BP 153/63
[2019-08-28 08:22] LABS: BASOPHILS % (AUTO) 0.9 % (0.0-2.0); HEMATOCRIT 31.7 % (42.0-52.0); HEMOGLOBIN 10.7 G/DL (14.2-18.0); LYMPHOCYTES % (AUTO) 15.7 % (20.0-45.0); MEAN CORPUSCULAR VOLUME 96 FL (80-99); MONOCYTES % (AUTO) 10.9 % (1.0-10.0); NEUTROPHILS % (AUTO) 70.5 % (45.0-75.0); PLATELET COUNT 192 K/UL (150-450); RED BLOOD COUNT 3.29 M/UL (4.70-6.10); RED CELL DISTRIBUTION WIDTH 15.1 % (11.6-14.8); WHITE BLOOD COUNT 6.8 K/UL (4.8-10.8)
[2019-08-28] MEDS: Docusate 100mg cap ORAL SCH ×3 (08:44→17:34)
[2019-08-28] MEDS: Labetalol 200mg tab ORAL SCH ×3 (08:44→23:22)
[2019-08-28] MEDS: Aspirin Baby 81mg ORAL SCH (08:44)
[2019-08-28] MEDS: sitaGLIPtin 25mg tab ORAL SCH (08:44)
[2019-08-28] MEDS: Lisinopril 20mg tab ORAL SCH ×2 (08:45→21:00)
[2019-08-28 09:11] LABS: CHOLESTEROL 172 MG/DL (< 200); CREATINE KINASE 347 U/L (26-308); GAMMA GLUTAMYL TRANSPEPTIDASE 20 U/L (5-85); HDL CHOLESTEROL 55 MG/DL (40-60); PHOSPHORUS 6.8 MG/DL (2.5-4.9); TRIGLYCERIDES 64 MG/DL (30-150)
--- NOTE | 2019-08-28 09:33 | Pulmonology Progress Note ---
Assessment/Plan Assessment/Plan IMPRESSION: 1. Pulmonary edema. 2. ESRD, on dialysis. 3. Diabetes mellitus. DISCUSSION: Continue dialysis. Continue medications. 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 DC planning for home in AM Javier Parks M.D. Subjective Interval Events: None new Constitutional: Reports: no symptoms HEENT: Repors: no symptoms Respiratory: Reports: no symptoms Cardiovascular: Reports: no symptoms Gastrointestinal/Abdominal: Reports: no symptoms Allergies: Coded Allergies: No Known Allergies (Unverified , 04/18/19) Objective Last 24 Hour Vital Signs Date Time Temp Pulse Resp B/P (MAP) Pulse Ox O2 Delivery O2 Flow Rate FiO2 08/28/19 08:45 153/63 08/28/19 08:44 69 153/63 08/28/19 06:45 170/73 08/28/19 06:45 170/73 08/28/19 04:00 65 08/28/19 04:00 97.9 68 18 178/73 (108) 91 08/28/19 01:53 174/70 08/28/19 00:00 70 08/28/19 00:00 98.0 79 20 174/70 (104) 98 08/27/19 21:39 176/71 08/27/19 21:38 176/71 08/27/19 21:37 80 176/71 08/27/19 21:00 Room Air 08/27/19 20:00 97.4 84 20 176/71 (106) 97 08/27/19 20:00 84 08/27/19 16:00 80 08/27/19 15:50 97.7 83 20 177/76 (109) 97 08/27/19 14:34 20408/27/19 14:33 204/08/27/19 12:00 81 08/27/19 12:00 98.7 81 20 180/79 (112) 98 Intake and Output 08/27/19 08/28/19 19:00 07:00 Intake Total 3730 ml 120 ml Output Total 200 ml 0 ml Balance 3530 ml 120 ml Intake Oral 730 ml 120 ml Hemodialysis 3000 ml Output Urine Total 200 ml 0 ml # Bowel Movements 2 1 General Appearance: no acute distress HEENT: normocephalic Respiratory/Chest: chest wall non-tender Cardiovascular: normal peripheral pulses Abdomen: normal bowel sounds Microbiology Date/Time Source Procedure Growth Status 08/26/19 19:30 Nasal Nares - Final Complete 08/26/19 19:30 Nasal Nares - Final Complete Laboratory Tests 08/27/19 15:40: Hepatitis B Surface Antigen Negative 08/28/19 07:40: White Blood Count 6.8, Red Blood Count 3.29L, Hemoglobin 10.7L, Hematocrit 31.7L , Mean Corpuscular Volume 96, Mean Corpuscular Hemoglobin 32.6H, Mean Corpuscular Hemoglobin Concent 33.8, Red Cell Distribution Width 15.1H, Platelet Count 192, Mean Platelet Volume 6.8, Neutrophils (%) (Auto) 70.5, Lymphocytes (%) (Auto) 15.7L, Monocytes (%) (Auto) 10.9H, Eosinophils (%) (Auto ) 2.0, Basophils (%) (Auto) 0.9, Sodium Level [Pending], Potassium Level [ Pending], Chloride Level [Pending], Carbon Dioxide Level [Pending], Blood Urea Nitrogen [Pending], Creatinine [Pending], Estimat Glomerular Filtration Rate [ Pending], Glucose Level [Pending], Hemoglobin A1c [Pending], Uric Acid 5.4, Calcium Level [Pending], Phosphorus Level 6.8H, Magnesium Level 2.2, Total Bilirubin [Pending], Gamma Glutamyl Transpeptidase 20, Aspartate Amino Transf ( AST/SGOT) [Pending], Alanine Aminotransferase (ALT/SGPT) [Pending], Alkaline Phosphatase [Pending], Total Creatine Kinase 347H, Troponin I [Pending], C- Reactive Protein, Quantitative 0.9, Pro-B-Type Natriuretic Peptide 14650N, Total Protein [Pending], Albumin [Pending], Globulin [Pending], Triglycerides Level 64, Cholesterol Level 172, LDL Cholesterol 103H, HDL Cholesterol 55, Cholesterol/HDL Ratio 3.1L, Vitamin B12 Level [Pending], Folate [Pending], Thyroid Stimulating Hormone (TSH) 2.219 Current Medications Medications (Trade) Dose Ordered Sig/Sarah Route PRN Reason Start Time Stop Time Status Last Admin Dose Admin Aspirin (ASA) 81 mg DAILY ORAL 08/28/19 09:00 09/27/19 08:59 08/28/19 08:44 Clonidine HCl (Catapres Tab) 0.1 mg Q4H PRN ORAL bp over 160 syst 08/27/19 09:15 09/26/19 09:14 08/28/19 06:45 Dextrose (Dextrose 50%) 25 ml Q30M PRN IV Hypoglycemia 08/27/19 16:00 09/26/19 15:59 Dextrose (Dextrose 50%) 50 ml Q30M PRN IV Hypoglycemia 08/27/19 16:00 09/26/19 15:59 Docusate Sodium (Colace) 100 mg THREE TIMES A DAY ORAL 08/27/19 13:00 09/26/19 12:59 08/28/19 08:44 Hydralazine HCl (Apresoline) 50 mg EVERY 8 HOURS ORAL 08/27/19 22:00 09/26/19 13:59 08/28/19 06:45 Insulin Aspart (NovoLOG) BEFORE MEALS AND HS SUBQ 08/27/19 17:00 09/26/19 16:59 Labetalol HCl (Normodyne) 200 mg EVERY 12 HOURS ORAL 08/27/19 21:00 09/26/19 20:59 08/28/19 08:44 Lisinopril (PriniviL) 20 mg Q12HR ORAL 08/27/19 21:00 09/26/19 20:59 08/28/19 08:45 Pantoprazole (Protonix) 40 mg EVERY 12 HOURS ORAL 08/27/19 21:00 09/26/19 20:59 08/28/19 08:44 Sitagliptin Phosphate (Januvia) 25 mg DAILY ORAL 08/28/19 09:00 09/27/19 08:59 08/28/19 08:44 Javier Parks MD Aug 28, 2019 09:33
[2019-08-28 09:42] LABS: ANION GAP 13 mmol/L (5-15); BLOOD UREA NITROGEN 49 mg/dL (7-18); CALCIUM 8.7 MG/DL (8.5-10.1); CARBON DIOXIDE 30 MMOL/L (21-32); CHLORIDE 102 MMOL/L (98-107); CREATININE 10.4 MG/DL (0.55-1.30); POTASSIUM 3.8 MMOL/L (3.5-5.1); SODIUM 145 MMOL/L (136-145)
[2019-08-28 09:48] LABS: ALANINE AMINOTRANSFERASE 18 U/L (12-78); ALBUMIN 3.5 G/DL (3.4-5.0); ALBUMIN/GLOBULIN RATIO 0.9 (1.0-2.7); ALKALINE PHOSPHATASE 63 U/L (46-116); ASPARTATE AMINO TRANSFERASE 16 U/L (15-37); BILIRUBIN,TOTAL 0.5 MG/DL (0.2-1.0)
[2019-08-28 11:56] VITALS: BP 157/68
--- NOTE | 2019-08-28 12:14 | Nephrology Progress Note ---
Assessment/Plan Problem List: (1) End-stage renal disease (2) Hyperkalemia (3) Pulmonary edema (4) CVA, old, hemiparesis (5) Hypertensive nephrosclerosis Assessment ESRD High K resolved Volume overload DM s/p toe amputation s/p CVA with left denisse Plan HD + UF + Low K bath done 08/27 - next HD 08/29 BP meds adjusted keep BP and BS in check 2D echo pending Folic acid per orders Objective Objective Last 24 Hour Vital Signs Date Time Temp Pulse Resp B/P (MAP) Pulse Ox O2 Delivery O2 Flow Rate FiO2 08/28/19 11:56 97.6 68 18 157/68 (97) 96 08/28/19 09:00 Room Air 08/28/19 08:45 153/63 08/28/19 08:44 69 153/63 08/28/19 08:00 71 08/28/19 08:00 97.8 71 20 153/63 (93) 97 08/28/19 06:45 170/73 08/28/19 06:45 170/73 08/28/19 04:00 65 08/28/19 04:00 97.9 68 18 178/73 (108) 91 08/28/19 01:53 174/70 08/28/19 00:00 70 08/28/19 00:00 98.0 79 20 174/70 (104) 98 08/27/19 21:39 176/71 08/27/19 21:38 176/71 08/27/19 21:37 80 176/71 08/27/19 21:00 Room Air 08/27/19 20:00 97.4 84 20 176/71 (106) 97 08/27/19 20:00 84 08/27/19 16:00 80 08/27/19 15:50 97.7 83 20 177/76 (109) 97 08/27/19 14:34 20408/27/19 14:33 204 Intake and Output 08/27/19 08/28/19 19:00 07:00 Intake Total 3730 ml 120 ml Output Total 200 ml 0 ml Balance 3530 ml 120 ml Intake Oral 730 ml 120 ml Hemodialysis 3000 ml Output Urine Total 200 ml 0 ml # Bowel Movements 2 1 Laboratory Tests 08/27/19 15:40: Hepatitis B Surface Antigen Negative 08/28/19 07:40: White Blood Count 6.8, Red Blood Count 3.29L, Hemoglobin 10.7L, Hematocrit 31.7L , Mean Corpuscular Volume 96, Mean Corpuscular Hemoglobin 32.6H, Mean Corpuscular Hemoglobin Concent 33.8, Red Cell Distribution Width 15.1H, Platelet Count 192, Mean Platelet Volume 6.8, Neutrophils (%) (Auto) 70.5, Lymphocytes (%) (Auto) 15.7L, Monocytes (%) (Auto) 10.9H, Eosinophils (%) (Auto ) 2.0, Basophils (%) (Auto) 0.9, Sodium Level 145, Potassium Level 3.8, Chloride Level 102, Carbon Dioxide Level 30, Anion Gap 13, Blood Urea Nitrogen 49H, Creatinine 10.4H, Estimat Glomerular Filtration Rate 5.1, Glucose Level 92 , Hemoglobin A1c 4.8, Uric Acid 5.4, Calcium Level 8.7, Phosphorus Level 6.8H, Magnesium Level 2.2, Total Bilirubin 0.5, Gamma Glutamyl Transpeptidase 20, Aspartate Amino Transf (AST/SGOT) 16, Alanine Aminotransferase (ALT/SGPT) 18, Alkaline Phosphatase 63, Total Creatine Kinase 347H, Troponin I 0.077H, C- Reactive Protein, Quantitative 0.9, Pro-B-Type Natriuretic Peptide 21663V, Total Protein 7.3, Albumin 3.5, Globulin 3.8, Albumin/Globulin Ratio 0.9L, Triglycerides Level 64, Cholesterol Level 172, LDL Cholesterol 103H, HDL Cholesterol 55, Cholesterol/HDL Ratio 3.1L, Vitamin B12 Level 630, Folate 6.6L, Thyroid Stimulating Hormone (TSH) 2.219 Height (Feet): 5 Height (Inches): 7.00 Weight (Pounds): 119 Yonatan Cohen MD Aug 28, 2019 12:14
[2019-08-28 12:28] LABS: % IRON SATURATION 25 % (15-50); IRON 38 ug/dL (50-175); TOTAL IRON BINDING CAPACITY 150 ug/dL (250-450)
[2019-08-28 12:41] LABS: FERRITIN 895 NG/ML (8-388)
[2019-08-28] MEDS: Renvela 800mg Pkt ORAL SCH ×2 (13:18→17:35)
--- NOTE | 2019-08-28 14:28 | NUR ---
CASE MANAGEMENT:REVIEW 08/28/19 SI: HYPERKALEMIA. VOLUME OVERLOAD ESRD ON HD 97.6 68 18 157/68 96% ON RA H/H-10.7/31.7 BUN+49 CR+10.4 TROPONIN(+) 0.077 IS: HYDRALAZINE PO Q8HRS LABETALOL PO Q8HRS ASA PO QD LISINOPRIL PO Q12 : TELEMETRY STATUS DCP: FROM HOME
[2019-08-28 16:00] VITALS: BP 133/64
--- NOTE | 2019-08-28 19:34 | NUR ---
HAND-OFF: Report given to Marylou. Patient is in stable condition.
--- NOTE | 2019-08-28 19:46 | NUR ---
NURSE NOTES: Received patient report from JANELLE Agarwal. Patient is awake laying in bed with by his side. There were no signs of distress or pain noted. AOx 4. He is able to ambulate with some assistance because of left sided weakness. Checked IV site patent, no signs of erythema, bleeding, or infiltration. Bed in the lowest position with brakes on and siderails x2. Call light within reach. Will continue plan of care.
--- NOTE | 2019-08-28 19:46 | NUR ---
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
[2019-08-28 20:00] VITALS: BP 147/63
[2019-08-29] VITALS: BP 139/62
[2019-08-29 04:00] VITALS: BP 138/71
[2019-08-29] MEDS: Labetalol 200mg tab ORAL SCH ×3 (06:00→17:13)
[2019-08-29] MEDS: NovoLOG Insulin Flexpen SUBQ SCH ×3 (06:02→16:30)
[2019-08-29] MEDS: HydrALAZINE 50mg tab ORAL SCH ×3 (06:10→17:13)
--- NOTE | 2019-08-29 07:25 | NUR ---
Bedside report Received, Patient awake a/o x 4 Polish speaking. no c/o pain and sob noted, ambulate with some assistance because of left sided weakness. Checked IV site patent, no signs of erythema, bleeding, or infiltration. Bed in the lowest position with brakes on and siderails x2. Call light within reach. Will continue plan of care.
--- NOTE | 2019-08-29 07:32 | NUR ---
HAND-OFF: Report given to JANELLE Chapa. Patient is awake lying semi-larry's; resting comfortably. Endorsed to oncoming shift RN regarding patient's hemodialysis procedure later today. In stable condition.
[2019-08-29 08:00] VITALS: BP 121/52
[2019-08-29] MEDS: Docusate 100mg cap ORAL SCH ×3 (09:00→17:13)
[2019-08-29] MEDS: Aspirin Baby 81mg ORAL SCH (09:00)
[2019-08-29] MEDS: Lisinopril 20mg tab ORAL SCH (09:00)
[2019-08-29] MEDS: Renvela 800mg Pkt ORAL SCH ×3 (10:08→17:13)
[2019-08-29] MEDS: sitaGLIPtin 25mg tab ORAL SCH (10:08)
--- NOTE | 2019-08-29 10:23 | NUR ---
DISCHARGE SWALLOW/SPEECH THERAPY SUMMARY PATIENT SEEN FOR DYSPHAGIA, SEE SWALLOW EVALUATION. PATIENT DISLIKES HIS FOOD CHOPPED EVEN THOUGH HE NEEDS HELP WITH CUTTING THE FOOD (HAS UE DEFICIT). UPGRADED TO SOFT CHEW. PER RNROSE, NO OVERT S/S OF ASPIRATION WITH MEALS. GOALS MET FOR INTAKE AND NEW STAFF EDUCATED/TRAINED IN POSTED ASPIRATION PRECAUTIONS. PLAN: D/C FROM HOSPITAL TO HOME TODAY CONSIDER F/UP WITH [facility] OR OUTPT HOST/HOSTESS RESTAURANT FOR MOD BARIUM SWALLOW STUDY ONLY IF NEEDS (LUNGS CLEAR NOW) AND COG-COM DEFICITS IF NEEDED ONE YEAR POST CVA. PATIENT MORE CONCERNED ABOUT GETTING MORE PHYSICAL THERAPY AND DENIES ANY COG-COM DEFICITS. HE HAS GROSSLY FUNCTIONAL COMMUNICATION SKILLS FOR CURRENT NEEDS BUT MAY HAVE SOME HIGHER-LEVEL COGNITIVE DEFICITS.
--- NOTE | 2019-08-29 11:08 | Nephrology Progress Note ---
Assessment/Plan Problem List: (1) End-stage renal disease (2) Hyperkalemia (3) Pulmonary edema (4) CVA, old, hemiparesis (5) Hypertensive nephrosclerosis Assessment ESRD High K resolved Volume overload DM s/p toe amputation s/p CVA with left denisse Plan HD + UF + Low K bath done 08/27 - next HD 08/29 BP meds adjusted keep BP and BS in check 2D echo 60% Ej Fx Folic acid per orders Subjective ROS Limited/Unobtainable: No Constitutional: Reports: malaise Objective Objective Last 24 Hour Vital Signs Date Time Temp Pulse Resp B/P (MAP) Pulse Ox O2 Delivery O2 Flow Rate FiO2 08/29/19 08:00 97.5 69 20 121/52 (75) 95 08/29/19 06:10 138/71 08/29/19 06:00 67 138/71 08/29/19 04:00 67 08/29/19 04:00 97.4 68 18 138/71 (93) 96 08/29/19 00:00 70 08/29/19 00:00 97.7 65 18 139/62 (87) 96 08/28/19 23:22 67 131/57 08/28/19 23:22 131/57 08/28/19 21:00 147/63 08/28/19 21:00 Room Air 08/28/19 20:00 97.3 66 18 147/63 (91) 96 08/28/19 20:00 68 08/28/19 16:00 97.7 61 18 133/64 (87) 95 08/28/19 16:00 59 08/28/19 13:10 157/68 08/28/19 13:09 68 157/68 08/28/19 12:00 65 08/28/19 11:56 97.6 68 18 157/68 (97) 96 Intake and Output 08/28/19 08/29/19 19:00 07:00 Intake Total 1080 ml 260 ml Balance 1080 ml 260 ml Intake Oral 1080 ml 260 ml # Voids 2 # Bowel Movements 1 2 Height (Feet): 5 Height (Inches): 7.00 Weight (Pounds): 181 General Appearance: no apparent distress Cardiovascular: normal rate Respiratory/Chest: decreased breath sounds Abdomen: soft Yonatan Cohen MD Aug 29, 2019 11:08
[2019-08-29 12:00] VITALS: BP 152/66
--- NOTE | 2019-08-29 13:59 | NUR ---
CASE MANAGEMENT:REVIEW 08/29/19 SI: HYPERKALEMIA. VOLUME OVERLOAD ESRD ON HD 97.5 69 20 121/52 95% ON RA IS: FOLATE PO QD HYDRALAZINE PO Q8HRS LABETALOL PO Q8HRS ASA PO QD LISINOPRIL PO Q12 : TELEMETRY STATUS DCP: FROM HOME PLAN: RENAL DIET SCHEDULED FOR HD TODAY
--- NOTE | 2019-08-29 15:45 | NUR ---
*-* INSURANCE *-* CLINICALS AND REVIEWS HAVE BEEN FAXED TO: [facility] Ref [id number] CM: Lamar #[phone] fax#[phone]
[2019-08-29 16:00] VITALS: BP 152/66
--- NOTE | 2019-08-29 16:00 | NUR ---
HD DONE WITH 3 LITER OUT PATIENT TOLERATED WELL
[2019-08-29 17:13] VITALS: BP 152/66
--- NOTE | 2019-08-29 17:39 | Pulmonology Progress Note ---
Assessment/Plan Assessment/Plan IMPRESSION: 1. Pulmonary edema. 2. ESRD, on dialysis. 3. Diabetes mellitus. DISCUSSION: Continue dialysis. Continue medications. 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 discharge home today Javier Parks M.D. Subjective Interval Events: status post hemodialysis today Constitutional: Reports: no symptoms HEENT: Repors: no symptoms Respiratory: Reports: no symptoms Cardiovascular: Reports: no symptoms Gastrointestinal/Abdominal: Reports: no symptoms Allergies: Coded Allergies: No Known Allergies (Unverified , 04/18/19) Objective Last 24 Hour Vital Signs Date Time Temp Pulse Resp B/P (MAP) Pulse Ox O2 Delivery O2 Flow Rate FiO2 08/29/19 17:13 72 152/66 08/29/19 17:13 152/66 08/29/19 16:00 97.6 72 20 152/66 (94) 94 08/29/19 12:00 72 08/29/19 12:00 97.6 72 20 152/66 (94) 94 08/29/19 09:00 Room Air 08/29/19 08:00 97.5 69 20 121/52 (75) 95 08/29/19 08:00 69 08/29/19 06:10 138/71 08/29/19 06:00 67 138/71 08/29/19 04:00 67 08/29/19 04:00 97.4 68 18 138/71 (93) 96 08/29/19 00:00 70 08/29/19 00:00 97.7 65 18 139/62 (87) 96 08/28/19 23:22 67 131/57 08/28/19 23:22 131/57 08/28/19 21:00 147/63 08/28/19 21:00 Room Air 08/28/19 20:00 97.3 66 18 147/63 (91) 96 08/28/19 20:00 68 Intake and Output 08/28/19 08/29/19 19:00 07:00 Intake Total 1080 ml 260 ml Balance 1080 ml 260 ml Intake Oral 1080 ml 260 ml # Voids 2 # Bowel Movements 1 2 General Appearance: no acute distress HEENT: normocephalic Respiratory/Chest: chest wall non-tender Cardiovascular: normal peripheral pulses Abdomen: normal bowel sounds Microbiology Date/Time Source Procedure Growth Status 08/26/19 23:00 Nasal Nares MRSA Culture - Final NO METHICILLIN RESISTANT STAPH AUREUS... Complete 08/26/19 19:30 Nasal Nares - Final Complete 08/26/19 19:30 Nasal Nares - Final Complete 08/26/19 23:00 Rectum VRE Culture - Final NO VANCOMYCIN RESISTANT ENTEROCOCCUS ... Complete 08/26/19 23:00 Rectum - Final NO CARBAPENEM-RESISTANT ENTEROBACTERI... Complete Current Medications Medications (Trade) Dose Ordered Sig/Sarah Route PRN Reason Start Time Stop Time Status Last Admin Dose Admin Aspirin (ASA) 81 mg DAILY ORAL 08/28/19 09:00 09/27/19 08:59 08/28/19 08:44 Clonidine HCl (Catapres Tab) 0.1 mg Q4H PRN ORAL bp over 160 syst 08/27/19 09:15 09/26/19 09:14 08/28/19 06:45 Dextrose (Dextrose 50%) 25 ml Q30M PRN IV Hypoglycemia 08/27/19 16:00 09/26/19 15:59 Dextrose (Dextrose 50%) 50 ml Q30M PRN IV Hypoglycemia 08/27/19 16:00 09/26/19 15:59 Docusate Sodium (Colace) 100 mg THREE TIMES A DAY ORAL 08/27/19 13:00 09/26/19 12:59 08/29/19 17:13 Folic Acid (Folate) 2 mg DAILY ORAL 08/29/19 09:00 09/28/19 08:59 Hydralazine HCl (Apresoline) 75 mg EVERY 8 HOURS ORAL 08/28/19 14:00 09/26/19 13:59 08/29/19 17:13 Insulin Aspart (NovoLOG) BEFORE MEALS AND HS SUBQ 08/27/19 17:00 09/26/19 16:59 08/28/19 21:01 Labetalol HCl (Normodyne) 200 mg Q8HR ORAL 08/28/19 14:00 09/27/19 13:59 08/29/19 17:13 Lisinopril (PriniviL) 20 mg Q12HR ORAL 08/27/19 21:00 09/26/19 20:59 08/28/19 21:00 Pantoprazole (Protonix) 40 mg EVERY 12 HOURS ORAL 08/27/19 21:00 09/26/19 20:59 08/29/19 10:08 Sevelamer Carbonate (Renvela) 800 mg THREE TIMES A DAY ORAL 08/28/19 13:00 09/27/19 12:59 08/29/19 17:13 Sitagliptin Phosphate (Januvia) 25 mg DAILY ORAL 08/28/19 09:00 09/27/19 08:59 08/29/19 10:08 Javier Parks MD Aug 29, 2019 17:39
--- NOTE | 2019-08-29 19:06 | NUR ---
PATIENT REFUSED NASAL SWAB AT THIS TIME
--- NOTE | 2019-08-29 19:07 | NUR ---
DISCHARGE INSTRUCTION GIVE PER PROTOCOL. PATIENT SIGN BELONGING LIST AND NOTIFIED TO SEE HIS PLATING DEPARTMENT HELPER AND PRIMARY MD WITH IN A WEEK. PATIENT VERBALIZED UNDRSTANDING OF THE GIVEN INSTRUCTION.
--- NOTE | 2019-08-29 20:00 | NUR ---
patient discharged with all his belonging as ordered
--- NOTE | 2019-09-02 08:11 | Discharge Summary ---
Discharge Summary Discharge Summary _ DATE OF ADMISSION: 08/27/2019 DATE OF DISCHARGE: 08/29/2019 DISCHARGED BY: Dr. Parks REASON FOR ADMISSION: 58 years old male with a past medical history of end-stage renal disease, on hemodialysis, hypertension, diabetes mellitus, presented with cough , nausea and headache. Patient was due to dialysis on that day. No fever , no chills , no shortness of breath or chest pain . Patient was diagnosed with pulmonary edema due to fluid overload and hyperkalemia and admitted for further management . CONSULTANTS: deposition reporter Dr. Cohen HOSPITAL COURSE: Patient admitted to telemetry floor. Hemodialysis was arranged as per deposition reporter recommendations with close monitoring of volumes, renal parameters and electrolytes. Hyperkalemia resolved. Hypertensive medication were optimized to keep blood pressure under control as per deposition reporter recommendation. Echocardiogram revealed preserved ejection fraction 60%, no evidence of wall motion abnormality. Right ventricular systolic pressure of 27. Hemoglobin and hematocrit were closely monitored with goal to keep hemoglobin above 7. Anemia work-up was consistent with anemia of chronic disease. Noted low folate level, and patient was started on folic acid supplement. Blood sugar was managed with Januvia and sliding scale of insulin as needed. Hemoglobin A1c 4.8. Patient clinically stabilized . After hemodialysis, all electrolytes stable. Pulse oximetry stable on room air . Patient was ready p for discharge home. FINAL DIAGNOSES: Pulmonary edema Hyperkalemia End-stage renal disease, on hemodialysis History of CVA with left hemiparesis Hypertensive nephrosclerosis Diabetes mellitus type II DISCHARGE MEDICATIONS: See Medication Reconciliation list. DISCHARGE INSTRUCTIONS: Patient was discharged home. Follow-up with outpatient hemodialysis schedule. I have been assigned to dictate discharge summary for this account. I was not involved in the patient's management. Danay Dale NP Sep 02, 2019 08:11
== END 2019-08-29 19:45 | disposition home or self-care (01) | DRG 640 ==
LOC: EMR 20:30 → EDBEDREQ 08-27 06:09 → 2E 08-27 06:15
PROC: 5A1D70Z Performance of Urinary Filtration, Intermittent, Less than 6 Hours Per Day (ICD-10-PCS; principal; 2019-08-27)
DX: E87.5 Hyperkalemia (principal); N18.6 End stage renal disease; I12.0 Hypertensive chronic kidney disease with stage 5 chronic kidney disease or end stage renal disease; I69.354 Hemiplegia and hemiparesis following cerebral infarction affecting left non-dominant side; Z99.2 Dependence on renal dialysis; E11.22 Type 2 diabetes mellitus with diabetic chronic kidney disease; E87.70 Fluid overload, unspecified; Z89.429 Acquired absence of other toe(s), unspecified side
CPT/HCPCS: 36415; 70450; 71045; 80053; 80061; 82550; 82607; 82728; 82746; 82962; 82977; 83036; 83540; 83550; 83690; 83735; 83880; 84100; 84443; 84484; 84550; 85025; 86140; 86706; 86710; 87081; 93005; 93306; 96374; 96375; 96376; 99291; J1815

== ENCOUNTER 2019-11-18 17:27 | Inpatient (IN) | payer MEDICARE, OTHER ==
[~2019-11-18] VITALS: Ht 170.2 cm; Wt 81.3 kg
[~2019-11-18 17:27] MED LIST changes: +HYDRALAZINE HCL50 MG ORAL
[2019-11-18] MEDS ORDERED: Nitroglycerin 2% oint pkt TOPIC ONE (17:45)
--- NOTE | 2019-11-18 17:49 | Emergency Room Report ---
History of Present Illness General Chief Complaint: Dyspnea/Respdistress Source: Patient, Family Member Present Illness HPI Patient presents in respiratory distress Patient was driven in by his she reports that he gets dialysis Monday and Supposed to be getting dialysis on Saturdays however he has not wanted to do that Patient was here 2 months ago with similar dyspnea Patient himself is in respiratory distress and cannot provide any history this is obtained from the family They deny any fevers They report that he more acutely became short of breath this evening denies any fall or trauma denies any rash Allergies: Coded Allergies: No Known Allergies (Unverified , 04/18/19) COVID-19 Screening Contact w/high risk pt: No Recent Travel to affected area: No Experienced COVID-19 symptoms?: Yes COVID-19 symptoms experienced: Shortness of Breath Patient History Limited by: medical condition Past Medical History: see triage record Reviewed Nursing Documentation: PMH: Agreed; PSxH: Agreed Nursing Documentation-PMH Hx Hypertension: Yes Hx Diabetes: Yes Hx Cancer: No Hx Gastrointestinal Problems: No Hx Dialysis: Yes - L. upper arm shunt Hx Neurological Problems: Yes Hx Cerebrovascular Accident: Yes Hx Weakness: Yes - L side Review of Systems All Other Systems: limited - Other than the ones mentioned in the history of present illness all others are reviewed however they do stay limited due to the patient's mental status Physical Exam Vital Signs Date Time Temp Pulse Resp B/P (MAP) Pulse Ox O2 Delivery O2 Flow Rate FiO2 11/18/19 17:29 97.7 107 25 93 Nasal Cannula 2.0 11/18/19 17:43 259/108 Sp02 EP Interpretation: reviewed, normal General Appearance: moderate distress - Diaphoretic short of breath Head: normocephalic, atraumatic Eyes: bilateral eye PERRL, bilateral eye EOMI ENT: hearing grossly normal, EOM grossly intact Neck: supple Respiratory: accessory muscle use - With retractions tachypneic crackles diffusely Cardiovascular #1: regular rate, rhythm Gastrointestinal: non tender, soft Genitourinary: no CVA tenderness Musculoskeletal: normal inspection Neurologic: alert, oriented x3 - Having difficulty speaking, short of breath Psychiatric: normal inspection Skin: no rash - AV shunt left upper arm Lymphatic: no adenopathy Procedures Critical Care Time Critical Care Time 70 minutes for multiple re-evaluations critical presentation concern for acute decompensation and possible not including any procedural time Medical Decision Making Diagnostic Impression: Primary Impression: Dyspnea Additional Impressions: End-stage renal disease Hyperkalemia ER Course Patient is a fairly complex patient with multiple differential to consideration including but not limited to cardiac cardiopulmonary and vascular emergencies Patient has extensive blood work and imaging initiated Patient's x-ray shows significant bilateral effusions x-ray from previous visit does show similar findings Patient's admitting physician is contacted emergently he is a candidate for more emergent dialysis Labs Test 11/18/19 17:34 11/18/19 20:10 White Blood Count 12.2 K/UL (4.8-10.8) Red Blood Count 3.70 M/UL (4.70-6.10) Hemoglobin 11.5 G/DL (14.2-18.0) Hematocrit 37.8 % (42.0-52.0) Mean Corpuscular Volume 102 FL (80-99) Mean Corpuscular Hemoglobin 31.2 PG (27.0-31.0) Mean Corpuscular Hemoglobin Concent 30.5 G/DL (32.0-36.0) Red Cell Distribution Width 17.5 % (11.6-14.8) Platelet Count 250 K/UL (150-450) Mean Platelet Volume 7.1 FL (6.5-10.1) Neutrophils (%) (Auto) 77.5 % (45.0-75.0) Lymphocytes (%) (Auto) 13.3 % (20.0-45.0) Monocytes (%) (Auto) 6.8 % (1.0-10.0) Eosinophils (%) (Auto) 1.3 % (0.0-3.0) Basophils (%) (Auto) 1.1 % (0.0-2.0) Sodium Level 146 MMOL/L (136-145) Potassium Level 5.5 MMOL/L (3.5-5.1) Chloride Level 104 MMOL/L (98-107) Carbon Dioxide Level 25 MMOL/L (21-32) Anion Gap 18 mmol/L (5-15) Blood Urea Nitrogen 81 mg/dL (7-18) Creatinine 13.4 MG/DL (0.55-1.30) Estimat Glomerular Filtration Rate 3.8 mL/min (>60) Glucose Level 120 MG/DL (74-106) Calcium Level 8.5 MG/DL (8.5-10.1) Total Bilirubin 0.5 MG/DL (0.2-1.0) Aspartate Amino Transf (AST/SGOT) 16 U/L (15-37) Alanine Aminotransferase (ALT/SGPT) 25 U/L (12-78) Alkaline Phosphatase 86 U/L (46-116) Total Creatine Kinase 211 U/L (26-308) Troponin I 0.015 ng/mL (0.000-0.056) Pro-B-Type Natriuretic Peptide > 93994 pg/mL (0-125) Total Protein 8.2 G/DL (6.4-8.2) Albumin 4.1 G/DL (3.4-5.0) Globulin 4.1 g/dL Albumin/Globulin Ratio 1.0 (1.0-2.7) Lipase 212 U/L (73-393) EKG Diagnostic Results Rate: normal Rhythm: NSR ST Segments: other - Nonspecific ST and T wave changes Rhythm Strip Diag. Results EP Interpretation: yes Rate: 88 Rhythm: NSR, no PVC's, no ectopy Chest X-Ray Diagnostic Results Chest X-Ray Diagnostic Results : Chest X-Ray Ordered: Yes # of Views/Limited/Complete: 1 View Indication: Shortness of Breath EP Interpretation: Yes Interpretation: no pneumothorax, other - Large bilateral effusions cardiomegaly Impression: Other - Large bilateral effusions cardiomegaly Electronically Signed by: Pablo Hinojosa DO Last Vital Signs Date Time Temp Pulse Resp B/P (MAP) Pulse Ox O2 Delivery O2 Flow Rate FiO2 11/18/19 17:43 259/108 11/18/19 17:29 97.7 107 25 93 Nasal Cannula 2.0 Status: improved Disposition: ADMITTED INPATIENT Condition: Critical Pablo Hinojosa DO November 18, 2019 17:49
[2019-11-18 17:59] LABS: ANION GAP 18 mmol/L (5-15); BLOOD UREA NITROGEN 81 mg/dL (7-18); CALCIUM 8.5 MG/DL (8.5-10.1); CARBON DIOXIDE 25 MMOL/L (21-32); CHLORIDE 104 MMOL/L (98-107); CREATININE 13.4 MG/DL (0.55-1.30); POTASSIUM 5.5 MMOL/L (3.5-5.1); SODIUM 146 MMOL/L (136-145)
[2019-11-18 18:01] LABS: BASOPHILS % (AUTO) 1.1 % (0.0-2.0); EOSINOPHILS % (AUTO) 1.3 % (0.0-3.0); HEMATOCRIT 37.8 % (42.0-52.0); HEMOGLOBIN 11.5 G/DL (14.2-18.0); LYMPHOCYTES % (AUTO) 13.3 % (20.0-45.0); MEAN CORPUSCULAR VOLUME 102 FL (80-99); MONOCYTES % (AUTO) 6.8 % (1.0-10.0); NEUTROPHILS % (AUTO) 77.5 % (45.0-75.0); PLATELET COUNT 250 K/UL (150-450); RED CELL DISTRIBUTION WIDTH 17.5 % (11.6-14.8); WHITE BLOOD COUNT 12.2 K/UL (4.8-10.8)
[2019-11-18 18:10] LABS: ALANINE AMINOTRANSFERASE 25 U/L (12-78); ALBUMIN 4.1 G/DL (3.4-5.0); ALKALINE PHOSPHATASE 86 U/L (46-116); ASPARTATE AMINO TRANSFERASE 16 U/L (15-37); BILIRUBIN,TOTAL 0.5 MG/DL (0.2-1.0); CREATINE KINASE 211 U/L (26-308)
[2019-11-18 18:31] VITALS: BP 174/63
--- NOTE | 2019-11-18 18:52 | Consultation ---
Consult Note Consult Note I was asked to evaluate the patient at the request of Dr. Parks immediately for dialysis management. I also cared for the patient in early August 2019 at [facility]. Patient seen in emergency room room 10. Discussed with RN and also Dr. Tyler. Patient is a Portuguese. Patient is on BiPAP Patient is a dialysis patient who apparently missed his dialysis session 2 days ago He presents to emergency room with shortness of breath. Emergency room note: Patient presents in respiratory distress Patient was driven in by his she reports that he gets dialysis Monday and Supposed to be getting dialysis on Saturdays however he has not wanted to do that Patient was here 2 months ago with similar dyspnea Patient himself is in respiratory distress and cannot provide any history this is obtained from the family They deny any fevers They report that he more acutely became short of breath this evening denies any fall or trauma denies any rash No Known Allergies (Unverified , 04/18/19) COVID-19 Screening Contact w/high risk pt: No Recent Travel to affected area: No Experienced COVID-19 symptoms?: Yes COVID-19 symptoms experienced: Shortness of Breath Past Medical History: No History, Except For Hx Hypertension: Yes Hx Diabetes: Yes Hx Dialysis: Yes - L. upper arm shunt Hx Neurological Problems: Yes Hx Cerebrovascular Accident: Yes Hx Weakness: Yes - L side examined data reviewed Assessment/Plan 59-year-old male presents to emergency room with volume overload as a result of missing hemodialysis ESRD High K Volume overload DM s/p toe amputation s/p CVA with left denisse 2D echocardiogram in August he had ejection fraction of 60% Plan: P.o. Kayexalate now HD + UF + Low K bath. Stat hemodialysis ordered BP meds keep BP and BS in check per orders Yonatan Cohen MD November 18, 2019 18:52
[2019-11-18] MEDS ORDERED: Sodium Polystyrene Sulfonate 15gm Powder ORAL SCH (19:00)
[2019-11-18] MEDS ORDERED: Metoclopramide 10mg/2ml Inj IVP PRN (19:15)
[2019-11-18 19:58] VITALS: BP 186/83
--- NOTE | 2019-11-18 20:33 | Diagnostic Imaging Report ---
Indication: Shortness of breath Technique: One view of the chest Comparison: 08/26/2019 Findings: Large left pleural effusion again demonstrated, appears slightly smaller than on the prior study. Peripheral infiltrates versus edema is seen in the right lung. This is less extensive than on the prior study. There is probably some pleural fluid on the right, more extensive than previously. The heart is enlarged. Impression: Bilateral pleural effusions, as described Right lung peripheral infiltrates versus edema, less extensive than on previous exam of 08/26/2019 Borderline cardiomegaly
[2019-11-18 21:15] VITALS: BP 210/99
[2019-11-18] MEDS: HydrALAZINE 50mg tab ORAL SCH (22:00)
[2019-11-19] VITALS (8 sets, daily range): BP systolic 148–178; BP diastolic 61–91
[2019-11-19] MEDS: HydrALAZINE 50mg tab ORAL SCH ×3 (06:00→21:57)
[2019-11-19 06:54] LABS: BASOPHILS % (AUTO) 0.4 % (0.0-2.0); EOSINOPHILS % (AUTO) 0.7 % (0.0-3.0); HEMATOCRIT 32.3 % (42.0-52.0); HEMOGLOBIN 10.9 G/DL (14.2-18.0); LYMPHOCYTES % (AUTO) 11.5 % (20.0-45.0); MEAN CORPUSCULAR VOLUME 95 FL (80-99); MONOCYTES % (AUTO) 7.3 % (1.0-10.0); NEUTROPHILS % (AUTO) 80.1 % (45.0-75.0); PLATELET COUNT 174 K/UL (150-450); RED BLOOD COUNT 3.41 M/UL (4.70-6.10); RED CELL DISTRIBUTION WIDTH 15.5 % (11.6-14.8); WHITE BLOOD COUNT 8.6 K/UL (4.8-10.8)
[2019-11-19 07:48] LABS: ALANINE AMINOTRANSFERASE 25 U/L (12-78); ALBUMIN 3.6 G/DL (3.4-5.0); ALBUMIN/GLOBULIN RATIO 0.9 (1.0-2.7); ALKALINE PHOSPHATASE 71 U/L (46-116); ANION GAP 11 mmol/L (5-15); ASPARTATE AMINO TRANSFERASE 17 U/L (15-37); BILIRUBIN,TOTAL 0.6 MG/DL (0.2-1.0); BLOOD UREA NITROGEN 45 mg/dL (7-18); CALCIUM 8.5 MG/DL (8.5-10.1); CARBON DIOXIDE 32 MMOL/L (21-32); CHLORIDE 103 MMOL/L (98-107); CHOLESTEROL 166 MG/DL (< 200); CREATINE KINASE 184 U/L (26-308); CREATININE 9.2 MG/DL (0.55-1.30); FERRITIN 716 NG/ML (8-388); GAMMA GLUTAMYL TRANSPEPTIDASE 19 U/L (5-85); HDL CHOLESTEROL 58 MG/DL (40-60); PHOSPHORUS 5.6 MG/DL (2.5-4.9); POTASSIUM 4.1 MMOL/L (3.5-5.1); SODIUM 146 MMOL/L (136-145); TRIGLYCERIDES 59 MG/DL (30-150)
[2019-11-19 08:23] LABS: % IRON SATURATION 11 % (15-50); IRON 34 ug/dL (50-175); TOTAL IRON BINDING CAPACITY 321 ug/dL (250-450)
[2019-11-19] MEDS ORDERED: Docusate 100mg cap ORAL SCH (09:00)
[2019-11-19] MEDS ORDERED: Lisinopril 10mg tab ORAL SCH (09:00)
--- NOTE | 2019-11-19 10:19 | Nephrology Progress Note ---
Assessment/Plan Problem List: (1) End-stage renal disease (2) Hyperkalemia (3) Volume overload (4) Hypertensive nephrosclerosis (5) CVA, old, hemiparesis Assessment 59-year-old male presents to emergency room with volume overload as a result of missing hemodialysis ESRD High K Volume overload DM s/p toe amputation s/p CVA with left denisse 2D echocardiogram in August he had ejection fraction of 60% Accelerated hypertension Plan November 18: Patient was dialyzed and had 3 L removed Serum potassium now normal Will adjust blood pressure medication Next hemodialysis November 19 keep BP and BS in check per orders Subjective ROS Limited/Unobtainable: No Constitutional: Reports: malaise Objective Objective Last 24 Hour Vital Signs Date Time Temp Pulse Resp B/P (MAP) Pulse Ox O2 Delivery O2 Flow Rate FiO2 11/19/19 08:50 174/83 11/19/19 08:34 97.8 81 20 174/83 (113) 11/19/19 08:00 Room Air 11/19/19 06:00 188/82 11/19/19 04:00 79 11/19/19 04:00 97.7 77 20 178/75 (109) 100 11/19/19 04:00 Bi-pap 11/19/19 04:00 6.0 35 11/19/19 00:26 184/101 11/19/19 00:00 97.7 85 18 160/91 (114) 100 11/19/19 00:00 90 11/19/19 00:00 Bi-pap 11/19/19 00:00 100 11/18/19 23:15 84 23 100 100 11/18/19 22:00 199/99 11/18/19 22:00 89 11/18/19 21:15 Bi-Pap 11/18/19 21:15 97.5 94 23 210/99 (136) 100 11/18/19 21:10 81 21 100 100 11/18/19 21:10 81 21 100 Bi-Pap 100 11/18/19 21:05 97.5 71 14 210/97 100 Bi-pap 2.0 100 78 11/18/19 20:52 210/97 11/18/19 20:25 209/98 11/18/19 19:58 97.5 78 14 186/83 100 Bi-pap 2.0 100 11/18/19 18:31 97.7 71 14 174/63 100 Bi-pap 11/18/19 17:52 88 19 100 100 11/18/19 17:43 259/108 11/18/19 17:43 259/108 11/18/19 17:30 107 25 Bi-pap 11/18/19 17:29 97.7 107 25 93 Nasal Cannula 2.0 Intake and Output 11/18/19 11/19/19 19:00 07:00 Output Total 0 ml 3000 ml Balance 0 ml -3000 ml Output Urine Total 0 ml Hemodialysis UF 3000 ml Laboratory Tests 11/18/19 17:34: White Blood Count 12.2H, Red Blood Count 3.70L, Hemoglobin 11.5L, Hematocrit 37.8L, Mean Corpuscular Volume 102H, Mean Corpuscular Hemoglobin 31.2H, Mean Corpuscular Hemoglobin Concent 30.5L, Red Cell Distribution Width 17.5H, Platelet Count 250, Mean Platelet Volume 7.1, Neutrophils (%) (Auto) 77.5H, Lymphocytes (%) (Auto) 13.3L, Monocytes (%) (Auto) 6.8, Eosinophils (%) (Auto) 1.3, Basophils (%) (Auto) 1.1, Sodium Level 146H, Potassium Level 5.5H, Chloride Level 104, Carbon Dioxide Level 25, Anion Gap 18H, Blood Urea Nitrogen 81H, Creatinine 13.4H, Estimat Glomerular Filtration Rate 3.8, Glucose Level 120H, Calcium Level 8.5, Total Bilirubin 0.5, Aspartate Amino Transf (AST/SGOT) 16, Alanine Aminotransferase (ALT/SGPT) 25, Alkaline Phosphatase 86, Total Creatine Kinase 211, Troponin I 0.015, Pro-B-Type Natriuretic Peptide > 61694A, Total Protein 8.2, Albumin 4.1, Globulin 4.1, Albumin/Globulin Ratio 1.0, Lipase 212 11/18/19 20:10: Hepatitis B Surface Antigen [Pending] 11/19/19 03:32: White Blood Count 8.6, Red Blood Count 3.41L, Hemoglobin 10.9L, Hematocrit 32.3L , Mean Corpuscular Volume 95, Mean Corpuscular Hemoglobin 31.8H, Mean Corpuscular Hemoglobin Concent 33.6, Red Cell Distribution Width 15.5H, Platelet Count 174, Mean Platelet Volume 6.1L, Neutrophils (%) (Auto) 80.1H, Lymphocytes (%) (Auto) 11.5L, Monocytes (%) (Auto) 7.3, Eosinophils (%) (Auto) 0.7, Basophils (%) (Auto) 0.4, Sodium Level 146H, Potassium Level 4.1, Chloride Level 103, Carbon Dioxide Level 32, Anion Gap 11, Blood Urea Nitrogen 45H, Creatinine 9.2H, Estimat Glomerular Filtration Rate 5.9, Glucose Level 81, Calcium Level 8.5, Total Bilirubin 0.6, Aspartate Amino Transf (AST/SGOT) 17, Alanine Aminotransferase (ALT/SGPT) 25, Alkaline Phosphatase 71, Total Creatine Kinase 184, Troponin I 0.076H, Pro-B-Type Natriuretic Peptide > 38162U, Total Protein 7.4, Albumin 3.6, Globulin 3.8, Albumin/Globulin Ratio 0.9L, D-Dimer 1.68H, Hemoglobin A1c 4.8, Uric Acid 4.9, Phosphorus Level 5.6H, Magnesium Level 2.2, Iron Level 34L, Total Iron Binding Capacity 321, Percent Iron Saturation 11L, Unsaturated Iron Binding 287, Ferritin 716H, Gamma Glutamyl Transpeptidase 19, C-Reactive Protein, Quantitative 1.5H, Triglycerides Level 59 , Cholesterol Level 166, LDL Cholesterol 84, HDL Cholesterol 58, Cholesterol/ HDL Ratio 2.9L, Vitamin B12 Level 594, Folate 18.2, Thyroid Stimulating Hormone (TSH) 1.883 Height (Feet): 5 Height (Inches): 7.00 Weight (Pounds): 184 General Appearance: no apparent distress, other - Breathing easy now Cardiovascular: tachycardia Respiratory/Chest: decreased breath sounds Abdomen: soft Yonatan Cohen MD November 19, 2019 10:18
[2019-11-19] MEDS: Aspirin Baby 81mg ORAL SCH (11:27)
[2019-11-19] MEDS: Lisinopril 20mg tab ORAL SCH ×2 (11:27→17:10)
[2019-11-19] MEDS: Nitroglycerin Patch 0.4mg TDERMAL SCH (11:28)
[2019-11-19] MEDS: Docusate 100mg cap ORAL SCH ×2 (12:20→17:09)
--- NOTE | 2019-11-19 21:15 | History and Physical Report ---
DATE OF ADMISSION: 11/18/2019 HISTORY OF PRESENT ILLNESS: This is a 59-year-old male who was admitted to the hospital after he had missed dialysis. The patient presented to the emergency room yesterday with shortness of breath. He had missed dialysis. He was then placed on BiPAP. He was seen urgently by Nephrology and underwent hemodialysis. Currently, he is feeling significantly better. The patient has a previous admission here 2 months ago with similar problem. The patient is otherwise unable to provide any further history. PAST HISTORY: Hypertension, diabetes mellitus, ESRD on dialysis, left upper extremity shunt, and previous CVA. HOME MEDICATIONS: Reviewed and reconciled in chart. SURGERIES: Left upper extremity shunt. ALLERGIES: None reported. CODE STATUS: Full. PHYSICAL EXAMINATION: GENERAL: Reveals an elderly male. VITAL SIGNS: Blood pressure is 150/60, heart rate 74, respiratory rate 18, he is afebrile, and O2 saturation 90% on room air currently. HEENT: Unremarkable. CHEST: Decreased breath sounds bilaterally with normal heart sounds. ABDOMEN: Soft. EXTREMITIES: There is no edema. LABORATORY DATA: Lab testing shows hemoglobin 10.9, white count 8.6, platelet count is 174,000. Chemistries show creatinine 0.2 now, yesterday it was 13.4. Coags show D-dimer 1.68. Serology noncontributory. IMPRESSION: 1. Pulmonary edema. 2. Missed dialysis. 3. Hypertension. 4. Diabetes mellitus. 5. Previous CVA. DISCUSSION: Admit to the hospital. Continue home medications. He has been seen by Nephrology and dialysis has been continued. Currently, he is doing well. We will transfer to Med/Surg. Continue home medications. Dialysis per Nephrology. We will follow. Javier Parks M.D. DR: Tonio JOB#: [id number] CC:
[2019-11-20] VITALS: BP 159/63
[2019-11-20 04:00] VITALS: BP 158/67
[2019-11-20] MEDS: HydrALAZINE 50mg tab ORAL SCH ×2 (04:56→14:07)
[2019-11-20 08:00] VITALS: BP 140/60
[2019-11-20 08:49] LABS: BASOPHILS % (AUTO) 0.8 % (0.0-2.0); EOSINOPHILS % (AUTO) 1.6 % (0.0-3.0); HEMATOCRIT 33.8 % (42.0-52.0); HEMOGLOBIN 11.2 G/DL (14.2-18.0); LYMPHOCYTES % (AUTO) 10.6 % (20.0-45.0); MEAN CORPUSCULAR VOLUME 95 FL (80-99); MONOCYTES % (AUTO) 8.6 % (1.0-10.0); NEUTROPHILS % (AUTO) 78.5 % (45.0-75.0); PLATELET COUNT 181 K/UL (150-450); RED BLOOD COUNT 3.55 M/UL (4.70-6.10); RED CELL DISTRIBUTION WIDTH 16.2 % (11.6-14.8); WHITE BLOOD COUNT 7.6 K/UL (4.8-10.8)
[2019-11-20] MEDS: Aspirin Baby 81mg ORAL SCH (09:00)
[2019-11-20 09:28] LABS: ALANINE AMINOTRANSFERASE 16 U/L (12-78); ALBUMIN 3.2 G/DL (3.4-5.0); ALBUMIN/GLOBULIN RATIO 0.9 (1.0-2.7); ALKALINE PHOSPHATASE 59 U/L (46-116); ANION GAP 14 mmol/L (5-15); ASPARTATE AMINO TRANSFERASE 10 U/L (15-37); BILIRUBIN,TOTAL 0.4 MG/DL (0.2-1.0); BLOOD UREA NITROGEN 57 mg/dL (7-18); CARBON DIOXIDE 29 MMOL/L (21-32); CHLORIDE 100 MMOL/L (98-107); CREATININE 11.8 MG/DL (0.55-1.30); PHOSPHORUS 6.8 MG/DL (2.5-4.9); POTASSIUM 3.9 MMOL/L (3.5-5.1); SODIUM 143 MMOL/L (136-145)
[2019-11-20] MEDS: Docusate 100mg cap ORAL SCH ×2 (09:54→14:07)
[2019-11-20] MEDS: Lisinopril 20mg tab ORAL SCH (09:54)
--- NOTE | 2019-11-20 09:54 | Pulmonology Progress Note ---
Assessment/Plan Assessment/Plan IMPRESSION: 1. Pulmonary edema. 2. Missed dialysis. 3. Hypertension. 4. Diabetes mellitus. 5. Previous CVA. DISCUSSION: Continue home medications. He has been seen by Nephrology and dialysis has been continued. Currently, he is doing well. WIll dc home Javier Parks M.D. Subjective ROS Limited/Unobtainable: No Interval Events: Feeling better Constitutional: Reports: no symptoms HEENT: Repors: no symptoms Respiratory: Reports: no symptoms Cardiovascular: Reports: no symptoms Allergies: Coded Allergies: No Known Allergies (Unverified , 04/18/19) Objective Last 24 Hour Vital Signs Date Time Temp Pulse Resp B/P (MAP) Pulse Ox O2 Delivery O2 Flow Rate FiO2 11/20/19 04:56 158/67 11/20/19 04:00 97.1 78 18 158/67 (97) 93 11/20/19 00:00 96.9 77 18 159/63 (95) 93 11/19/19 21:57 81 163/76 11/19/19 21:57 163/76 11/19/19 21:00 Room Air 11/19/19 20:00 99.1 81 18 163/76 (105) 93 11/19/19 18:42 98.1 83 156/69 (98) 11/19/19 17:10 153/63 11/19/19 16:00 68 11/19/19 16:00 97.9 74 20 153/63 (93) 93 11/19/19 16:00 Room Air 11/19/19 14:59 159/61 11/19/19 14:18 72 159/61 (93) 11/19/19 12:18 Room Air 11/19/19 12:13 98.0 71 20 148/62 (90) 98 11/19/19 12:00 71 11/19/19 11:28 143/75 11/19/19 11:27 81 143/75 11/19/19 11:27 143/75 Intake and Output 11/19/19 11/20/19 19:00 07:00 Intake Total 640 ml 240 ml Output Total 3000 ml Balance 640 ml -2760 ml Intake Oral 640 ml 240 ml Output Urine Total 0 ml Hemodialysis UF 3000 ml # Voids 1 # Bowel Movements 2 General Appearance: no acute distress HEENT: normocephalic Respiratory/Chest: chest wall non-tender Cardiovascular: normal peripheral pulses Microbiology Date/Time Source Procedure Growth Status 11/18/19 14:15 Rectum Received Laboratory Tests 11/20/19 08:20: White Blood Count 7.6, Red Blood Count 3.55L, Hemoglobin 11.2L, Hematocrit 33.8L , Mean Corpuscular Volume 95, Mean Corpuscular Hemoglobin 31.6H, Mean Corpuscular Hemoglobin Concent 33.1, Red Cell Distribution Width 16.2H, Platelet Count 181, Mean Platelet Volume 6.0L, Neutrophils (%) (Auto) 78.5H, Lymphocytes (%) (Auto) 10.6L, Monocytes (%) (Auto) 8.6, Eosinophils (%) (Auto) 1.6, Basophils (%) (Auto) 0.8, Sodium Level 143, Potassium Level 3.9, Chloride Level 100, Carbon Dioxide Level 29, Anion Gap 14, Blood Urea Nitrogen 57H, Creatinine 11.8H, Estimat Glomerular Filtration Rate 4.4, Glucose Level 145H, Uric Acid 6.5, Calcium Level 8.0L, Phosphorus Level 6.8H, Magnesium Level 2.3, Total Bilirubin 0.4, Aspartate Amino Transf (AST/SGOT) 10L, Alanine Aminotransferase (ALT/SGPT) 16, Alkaline Phosphatase 59, Troponin I 0.037, C- Reactive Protein, Quantitative 3.2H, Pro-B-Type Natriuretic Peptide > 19558I, Total Protein 6.9, Albumin 3.2L, Globulin 3.7, Albumin/Globulin Ratio 0.9L Current Medications Medications (Trade) Dose Ordered Sig/Sarah Route PRN Reason Start Time Stop Time Status Last Admin Dose Admin Aspirin (ASA) 81 mg DAILY ORAL 11/19/19 11:00 01/03/20 10:59 11/19/19 11:27 Carvedilol (Coreg) 3.125 mg EVERY 12 HOURS ORAL 11/19/19 21:00 12/19/19 20:59 11/19/19 21:57 Clonidine HCl (Catapres Tab) 0.1 mg Q4H PRN ORAL bp over 170 syst 11/18/19 19:00 8/20 18:59 11/19/19 00:26 Docusate Sodium (Colace) 100 mg TID ORAL 11/19/19 13:00 12/19/19 08:59 11/19/19 17:09 Hydralazine HCl (Apresoline) 75 mg Q8HR ORAL 11/19/19 14:00 02/16/20 21:59 11/20/19 04:56 Lisinopril (PriniviL) 20 mg BID ORAL 11/19/19 10:15 12/19/19 08:59 11/19/19 17:10 Metoclopramide HCl (Reglan) 10 mg Q6H PRN IVP Nausea & Vomiting 11/18/19 19:15 12/18/19 19:14 Nitroglycerin (Ntg) 1 patch DAILY TDERMAL 11/19/19 11:00 12/19/19 10:59 11/19/19 11:28 Pantoprazole (Protonix) 40 mg Q12HR ORAL 11/18/19 21:00 12/18/19 20:59 11/19/19 21:57 Sevelamer Carbonate (Renvela) 800 mg THREE TIMES A DAY ORAL 11/19/19 13:00 02/17/20 12:59 11/19/19 17:10 Javier Parks MD November 20, 2019 09:54
[2019-11-20] MEDS: Nitroglycerin Patch 0.4mg TDERMAL SCH (09:55)
[2019-11-20] MEDS ORDERED: JANUVIA25 MG ORAL (09:56)
[2019-11-20] MEDS ORDERED: APRESOLINE50 MG ORAL (09:56)
[2019-11-20] MEDS ORDERED: ASPIRIN81 MG ORAL (09:56)
[2019-11-20] MEDS ORDERED: LABETALOL HCL200 MG ORAL (09:56)
[2019-11-20] MEDS ORDERED: PRINIVIL20 MG ORAL ×2 (09:56→09:59)
[2019-11-20] MEDS ORDERED: COREG3.125 MG ORAL (09:59)
[2019-11-20] MEDS ORDERED: RENVELA800 MG ORAL (09:59)
[2019-11-20 12:00] VITALS: BP 133/75
--- NOTE | 2019-11-20 12:49 | Nephrology Progress Note ---
Assessment/Plan Problem List: (1) End-stage renal disease (2) Hyperkalemia (3) Volume overload (4) Hypertensive nephrosclerosis (5) CVA, old, hemiparesis Assessment 59-year-old male presents to emergency room with volume overload as a result of missing hemodialysis ESRD High K Volume overload DM s/p toe amputation s/p CVA with left denisse 2D echocardiogram in August he had ejection fraction of 60% Accelerated hypertension Plan November 19: Patient is doing well clinically Serum potassium and blood pressure controlled Discussed with patient through a candy mixer Patient receives dialysis as an outpatient Monday He is due for outpatient dialysis tomorrow at 8 AM He agreed to be discharged be careful regarding his diet overnight and show up for outpatient dialysis tomorrow 8 AM The risks of not receiving dialysis on time explained November 18: Patient was dialyzed and had 3 L removed Serum potassium now normal Will adjust blood pressure medication Next hemodialysis November 19 keep BP and BS in check per orders Subjective ROS Limited/Unobtainable: No Objective Objective Last 24 Hour Vital Signs Date Time Temp Pulse Resp B/P (MAP) Pulse Ox O2 Delivery O2 Flow Rate FiO2 11/20/19 12:00 97.6 78 18 133/75 (94) 100 11/20/19 09:55 158/67 11/20/19 09:54 78 158/67 11/20/19 09:54 158/67 11/20/19 09:00 Room Air 11/20/19 08:00 97.6 85 18 140/60 (86) 93 11/20/19 04:56 158/67 11/20/19 04:00 97.1 78 18 158/67 (97) 93 11/20/19 00:00 96.9 77 18 159/63 (95) 93 11/19/19 21:57 81 163/76 11/19/19 21:57 163/76 11/19/19 21:00 Room Air 11/19/19 20:00 99.1 81 18 163/76 (105) 93 11/19/19 18:42 98.1 83 156/69 (98) 11/19/19 17:10 153/63 11/19/19 16:00 68 11/19/19 16:00 97.9 74 20 153/63 (93) 93 11/19/19 16:00 Room Air 11/19/19 14:59 159/61 11/19/19 14:18 72 159/61 (93) Intake and Output 11/19/19 11/20/19 19:00 07:00 Intake Total 640 ml 240 ml Output Total 3000 ml Balance 640 ml -2760 ml Intake Oral 640 ml 240 ml Output Urine Total 0 ml Hemodialysis UF 3000 ml # Voids 1 # Bowel Movements 2 Current Medications Medications (Trade) Dose Ordered Sig/Sarah Route PRN Reason Start Time Stop Time Status Last Admin Dose Admin Aspirin (ASA) 81 mg DAILY ORAL 11/19/19 11:00 01/03/20 10:59 11/20/19 09:00 Carvedilol (Coreg) 3.125 mg EVERY 12 HOURS ORAL 11/19/19 21:00 12/19/19 20:59 11/20/19 09:54 Clonidine HCl (Catapres Tab) 0.1 mg Q4H PRN ORAL bp over 170 syst 11/18/19 19:00 02/16/20 18:59 11/19/19 00:26 Docusate Sodium (Colace) 100 mg TID ORAL 11/19/19 13:00 12/19/19 08:59 11/20/19 09:54 Hydralazine HCl (Apresoline) 75 mg Q8HR ORAL 11/19/19 14:00 02/16/20 21:59 11/20/19 04:56 Lisinopril (PriniviL) 20 mg BID ORAL 11/19/19 10:15 12/19/19 08:59 11/20/19 09:54 Metoclopramide HCl (Reglan) 10 mg Q6H PRN IVP Nausea & Vomiting 11/18/19 19:15 12/18/19 19:14 Nitroglycerin (Ntg) 1 patch DAILY TDERMAL 11/19/19 11:00 12/19/19 10:59 11/20/19 09:55 Pantoprazole (Protonix) 40 mg Q12HR ORAL 11/18/19 21:00 12/18/19 20:59 11/20/19 09:54 Sevelamer Carbonate (Renvela) 800 mg THREE TIMES A DAY ORAL 11/19/19 13:00 02/17/20 12:59 11/20/19 09:55 Laboratory Tests 11/20/19 08:20: White Blood Count 7.6, Red Blood Count 3.55L, Hemoglobin 11.2L, Hematocrit 33.8L , Mean Corpuscular Volume 95, Mean Corpuscular Hemoglobin 31.6H, Mean Corpuscular Hemoglobin Concent 33.1, Red Cell Distribution Width 16.2H, Platelet Count 181, Mean Platelet Volume 6.0L, Neutrophils (%) (Auto) 78.5H, Lymphocytes (%) (Auto) 10.6L, Monocytes (%) (Auto) 8.6, Eosinophils (%) (Auto) 1.6, Basophils (%) (Auto) 0.8, Sodium Level 143, Potassium Level 3.9, Chloride Level 100, Carbon Dioxide Level 29, Anion Gap 14, Blood Urea Nitrogen 57H, Creatinine 11.8H, Estimat Glomerular Filtration Rate 4.4, Glucose Level 145H, Uric Acid 6.5, Calcium Level 8.0L, Phosphorus Level 6.8H, Magnesium Level 2.3, Total Bilirubin 0.4, Aspartate Amino Transf (AST/SGOT) 10L, Alanine Aminotransferase (ALT/SGPT) 16, Alkaline Phosphatase 59, Troponin I 0.037, C- Reactive Protein, Quantitative 3.2H, Pro-B-Type Natriuretic Peptide > 05157G, Total Protein 6.9, Albumin 3.2L, Globulin 3.7, Albumin/Globulin Ratio 0.9L Height (Feet): 5 Height (Inches): 7.00 Weight (Pounds): 179 General Appearance: no apparent distress Cardiovascular: normal rate Respiratory/Chest: lungs clear Yonatan Cohen MD November 20, 2019 12:49
[2019-11-20 14:07] VITALS: BP 133/75
--- NOTE | 2019-11-21 10:32 | Discharge Summary ---
Discharge Summary Discharge Summary _ DATE OF ADMISSION: 11/18/2019 DATE OF DISCHARGE: 11/20/2019 DISCHARGED BY: Dr. Parks REASON FOR ADMISSION: 59 years old male with past medical history of end-stage renal disease, on hemodialysis, history of CVA, hypertension, diabetes mellitus, admitted to the hospital after he missed hemodialysis. Patient presented with shortness of breath. Chest x-ray revealed bilateral pleural effusion and borderline cardiomegaly. Patient was placed on the BiPAP. Patient subsequently admitted for further management. CONSULTANTS: rat culturist Dr. Cohen [facility] COURSE: Patient admitted to the hospital. Patient was urgently seen by rat culturist and afterwards undergone hemodialysis with close monitoring of volumes and renal parameters. Hyperkalemia was treated. Serum potassium wasc controlled . Antihypertensive regimen was optimized. Blood pressure was managed with hydralazine, beta-que and JENNIFER inhibitor. Clonidine was on board as needed for blood pressure spikes. Antiplatelet therapy with aspirin continued. Echocardiogram ,done in August, revealed preserved ejection fraction . GI prophylaxis provided. Home medication continued. Patient has outpatient hemodialysis, which hr will follow-up as outpatient. Patient clinically stabilized and was ready for discharge FINAL DIAGNOSES: Pulmonary edema Missed hemodialysis Volume overload End-stage renal disease, on hemodialysis Hypertension Hypertensive nephrosclerosis Diabetes mellitus History of CVA with left hemiparesis Hyperkalemia DISCHARGE MEDICATIONS: See Medication Reconciliation list. DISCHARGE INSTRUCTIONS: Patient was discharged home with follow-up with outpatient hemodialysis as scheduled. Patient to follow-up with a primary care provider within 1-2 week via phone given current COVID-19 pandemic. I have been assigned to dictate discharge summary for this account. I was not involved in the patient's management. Danay Dale NP November 21, 2019 10:32
== END 2019-11-20 15:45 | disposition home or self-care (01) | DRG 640 ==
LOC: EMR 17:54 → 2W 18:02 → EDBEDREQSVC 19:55 → EDBEDREQ 19:57 → 3E 11-19 18:32
PROC: 5A1D70Z Performance of Urinary Filtration, Intermittent, Less than 6 Hours Per Day (ICD-10-PCS; principal; 2019-11-18)
PROC: 5A09357 Assistance with Respiratory Ventilation, Less than 24 Consecutive Hours, Continuous Positive Airway Pressure (ICD-10-PCS; 2019-11-18)
DX: E87.79 Other fluid overload (principal); N18.6 End stage renal disease; I12.0 Hypertensive chronic kidney disease with stage 5 chronic kidney disease or end stage renal disease; I69.354 Hemiplegia and hemiparesis following cerebral infarction affecting left non-dominant side; E87.5 Hyperkalemia; E11.22 Type 2 diabetes mellitus with diabetic chronic kidney disease; Z99.2 Dependence on renal dialysis; Z91.15 Patient's noncompliance with renal dialysis
CPT/HCPCS: 36415; 71045; 80053; 80061; 82550; 82607; 82728; 82746; 82962; 82977; 83036; 83540; 83550; 83690; 83735; 83880; 84100; 84443; 84484; 84550; 85025; 85379; 86140; 86706; 87081; 93005; 94664; 96374; 96375; 99291